=== PATIENT | female | born 1970 | race Caucasian/White ===

== ENCOUNTER 2018-10-22 03:04 | Inpatient (IN) ==
[2018-10-22] MEDS ORDERED: Ketorolac 30 MG/ML VIAL IVP ONE (05:25)
[2018-10-22] MEDS ORDERED: *HR* HYDROmorphone (PF) 1 MG/ML SYRINGE IVP ONE (05:25)
[2018-10-22] MEDS ORDERED: OXYCODONE Oral CONC 10 MG/0.5 ML ORAL.SYG SL PRN ×2 (05:27→11:41)
[2018-10-22] MEDS ORDERED: Naloxone 0.4 MG/ML INJ IVP PRN (05:27)
--- NOTE | 2018-10-22 06:00 | Internal Med History&Physical ---
Date of Encounter: 10/22/18 Time of Encounter: 05:56 Internal Medicine - H&P: HPI Chief complaint: neck pain Admitted From: Home Plans for Post Hospital Care: Home History of present illness: Jannie Abad is a 48 year old woman with a remote history of illicit drug use in the 80s and has rheumatoid arthritis/fibromyalgia for which she is no longer on DMARD therapy. She states that she started developing knee pains again and as she had been lost to medical follow-up did not have prescriptions for opiates so 4 days ago a friend of hers recommended that she do IV heroin again. Due to difficulty in obtaining venous access in her forearms, the injection was placed in her right neck and she immediately felt as though he had missed the vein. Of note the needle fell to the floor prior to insertion and he dabbed it off with his bare fingers. The next day she noticed redness and pain on the right side of her neck and progressively started having swelling. She did not seek medical attention immediately because she was embarrassed. It continued to progress to what it is today and was limiting and she started having suppuration. She has been applying warm compresses till now. At [facility] a [facility] scan was done which showed cellulitic changes and an abscess overlying the sternocleidomastoid supple; ENT was consulted and the patient was accepted here for admission. On arrival her chief complaint is pain but has no other issues. No fever or chills reported. Past Med Surg Social Fam HX - Past Medical History Medical history: other Additional medical history: fibromyalgia. RA. bulging disc l2-s16 Psychiatric history: anxiety - Past Surgical History Surgical History: - Social History Smoking Status: Never smoker Smokeless Tobacco Status: No Alcohol use: none Drug use: IV Drug Use Internal Medicine - H&P: Meds Allergy/AdvReac Type Severity Reaction Status Date / Time No Known Allergies Allergy Verified 10/22/18 04:58 All Systems PM: A 10-system review of systems was performed and is negative for pertinent findings except as documented above in the HPI. Family history reviewed and non- contributory. - Constitutional Vitals: Temp Pulse Resp BP Pulse Ox 98.8 F 89 16 110/73 97 10/22/18 04:59 10/22/18 04:59 10/22/18 04:59 10/22/18 04:59 10/22/18 04:59 Exam: Vitals: Reviewed General: Well developed white female, NAD Skin: Warm and supple. HEENT: Moist mucous membranes. No conjunctivae pallor. Neck: Large abscess overlying her right neck with a visible punctum with dried pus, erythema extending down to the clavicle and up to the upper trapezius. Chest: Normal thoracic expansion. Normal breath sounds. Clear to auscultation. Heart: Normal S1 & S2; rhythmic. No rubs or murmurs. Abdomen: Non-distended, soft and non-tender to palpation. No peritoneal reaction. Liver is normal in size. Spleen is not palpable. Extremities: No clubbing, cyanosis or edema. No calf tenderness. Normal distal pulses. Neurological: Awake, alert and oriented to person, place and time. No focal deficits. Psych: Affect appropriate. - Assessment and plan (1) Neck abscess Current Visit: Yes Status: Acute Assessment and plan: Secondary to intravenous use of illicit substance that was not well done. Will obtain blood cultures here and continue IV vancomycin empirically. ENT consultation requested to evaluate for possible I&D when deemed feasible. Will need close monitoring for progression. (2) Rheumatoid arthritis Current Visit: Yes Status: Acute Assessment and plan: Inflammatory signs not present at this time. Pain control measures ordered as needed. Qualifiers: Rheumatoid arthritis location: knee Rheumatoid factor presence: unspecified presence Laterality: bilateral Qualified Code(s): M06.9 - Rheumatoid arthritis, unspecified (3) Substance use disorder Current Visit: Yes Status: Acute Assessment and plan: She will benefit from counseling services prior to discharge. Should be screened for HIV and viral hepatitis. (4) DVT prophylaxis Current Visit: Yes Status: Acute Assessment and plan: SubQ heparin ordered. - Time Spent With Patient Total time spent is greater than 50% in coordination of care (as documented) at patient's floor/unit and/or counseling patient: Greater than 35 minutes
[2018-10-22 06:09] LABS: Basophils % 0.3 %; Eosinophils # 0.2 K/mcL (0.0-0.6); Eosinophils % 1.4 %; Hematocrit 36.5 % (35.3-44.9); Hemoglobin 11.9 g/dL (11.5-15.4); Immature Granulocytes % 0.3 % (0-4); Lymphocytes # 2.7 K/mcL (0.6-4.6); Lymphocytes % 19.6 %; Mean Corpuscular HGB Conc 32.6 g/dL (31.6-35.5); Mean Corpuscular Volume 85.9 fL (83.0-100.0); Mean Platelet Volume 9.9 fL (9.4-12.4); Monocytes # 1.3 K/mcL (0.0-1.3); Monocytes % 9.2 %; Neutrophils # 9.7 K/mcL (1.6-8.9); Platelet Count 251 K/mcL (140-400); Red Blood Count 4.25 M/mcL (3.82-4.97); Red Cell Distribution Width 13.5 % (11.5-14.5); Segmented Neutrophils % 69.2 %
[2018-10-22 06:16] LABS: INR 1.2; Prothrombin Time 13.3 Seconds (9.4-12.1)
[2018-10-22 06:18] LABS: Activated Partial Thrombo Time 28.5 Seconds (26.0-36.0)
[2018-10-22 06:30] LABS: Alanine Aminotransferase 34 Units/L (7-52); Albumin 3.3 g/dL (3.5-5.7); Alkaline Phosphatase 44 Units/L (34-104); Aspartate Amino Transferase 16 Units/L (13-39); BUN/Creatinine Ratio 9 (6-26); Bilirubin,Direct 0.1 mg/dL (0.0-0.2); Bilirubin,Indirect 0.3 mg/dL (0.0-1.2); Bilirubin,Total 0.4 mg/dL (0.3-1.0); Blood Urea Nitrogen 5 mg/dL (6-20); Calcium 8.2 mg/dL (8.6-10.3); Carbon Dioxide 23 mEq/L (23-29); Chloride 107 mEq/L (98-107); Globulin 3.4 g/dL (2.4-3.5); Glucose 111 mg/dL (70-105); Osmolality,Calculated 280 (280-300); Potassium 3.9 mEq/L (3.5-5.1); Sodium 136 mEq/L (136-145); Total Protein 6.7 g/dL (6.4-8.9); eGFR For Non-African Americans > 60 (> 60)
--- NOTE | 2018-10-22 07:38 | ENT - Consult Note ---
Date of Encounter: 10/22/18 Time of Encounter: 07:38 Past Med Surg Social Fam HX - Past Medical History Medical history: other Additional medical history: fibromyalgia. RA. bulging disc l2-s16 Psychiatric history: anxiety - Past Surgical History Surgical History: - Social History Smoking Status: Never smoker Smokeless Tobacco Status: No Alcohol use: none Drug use: IV Drug Use Medications and Allergies Allergy/AdvReac Type Severity Reaction Status Date / Time No Known Allergies Allergy Verified 10/22/18 04:58 ENT Exam Initial Vital Signs Temp Pulse Resp BP Pulse Ox 98.8 F 89 16 110/73 97 10/22/18 04:59 10/22/18 04:59 10/22/18 04:59 10/22/18 04:59 10/22/18 04:59 Exam Initial Vital Signs Temp Pulse Resp BP Pulse Ox 98.8 F 89 16 110/73 97 10/22/18 04:59 10/22/18 04:59 10/22/18 04:59 10/22/18 04:59 10/22/18 04:59 Results - Labs 10/22/18 05:45 10/22/18 05:45 Abnormal lab results WBC 14.0 K/mcL (4.3-11.1) H 10/22/18 05:45 Neutrophils # 9.7 K/mcL (1.6-8.9) H 10/22/18 05:45 PT 13.3 Seconds (9.4-12.1) H 10/22/18 05:45 BUN 5 mg/dL (6-20) L 10/22/18 05:45 Creatinine 0.55 mg/dL (0.60-1.20) L 10/22/18 05:45 Glucose 111 mg/dL (70-105) H 10/22/18 05:45 Calcium 8.2 mg/dL (8.6-10.3) L 10/22/18 05:45 Albumin 3.3 g/dL (3.5-5.7) L 10/22/18 05:45 Albumin/Globulin Ratio 1.0 (1.1-2.2) L 10/22/18 05:45 Diabetes panel 10/22/18 Range/Units 05:45 Sodium 136 (136-145) mEq/L Potassium 3.9 (3.5-5.1) mEq/L Chloride 107 (98-107) mEq/L Carbon Dioxide 23 (23-29) mEq/L BUN 5 L (6-20) mg/dL Creatinine 0.55 L (0.60-1.20) mg/dL Glucose 111 H (70-105) mg/dL Calcium 8.2 L (8.6-10.3) mg/dL AST 16 (13-39) Units/L ALT 34 (7-52) Units/L Alkaline Phosphatase 44 (34-104) Units/L Albumin 3.3 L (3.5-5.7) g/dL Calcium panel 10/22/18 Range/Units 05:45 Calcium 8.2 L (8.6-10.3) mg/dL Albumin 3.3 L (3.5-5.7) g/dL Pituitary panel 10/22/18 Range/Units 05:45 Sodium 136 (136-145) mEq/L Potassium 3.9 (3.5-5.1) mEq/L Chloride 107 (98-107) mEq/L Carbon Dioxide 23 (23-29) mEq/L BUN 5 L (6-20) mg/dL Creatinine 0.55 L (0.60-1.20) mg/dL Glucose 111 H (70-105) mg/dL Calcium 8.2 L (8.6-10.3) mg/dL Adrenal panel 10/22/18 Range/Units 05:45 Sodium 136 (136-145) mEq/L Potassium 3.9 (3.5-5.1) mEq/L Chloride 107 (98-107) mEq/L Carbon Dioxide 23 (23-29) mEq/L BUN 5 L (6-20) mg/dL Creatinine 0.55 L (0.60-1.20) mg/dL Glucose 111 H (70-105) mg/dL Calcium 8.2 L (8.6-10.3) mg/dL Total Bilirubin 0.4 (0.3-1.0) mg/dL AST 16 (13-39) Units/L ALT 34 (7-52) Units/L Alkaline Phosphatase 44 (34-104) Units/L Albumin 3.3 L (3.5-5.7) g/dL All other labs normal. Consult Discharge Plan - Plan Referrals: NONE,PCP [Primary Care Provider] -
[2018-10-22] MEDS: *HR* Heparin 5,000 UNIT/ML VIAL SQ SCH ×3 (07:45→23:02)
[2018-10-22] MEDS: OXYCODONE Oral CONC 10 MG/0.5 ML ORAL.SYG SL PRN ×4 (07:46→20:11)
--- NOTE | 2018-10-22 08:41 | Event Note ---
<Jose Alejandro Pimentel - Last Filed: 10/22/18 11:48> Date of Encounter: 10/22/18 Time of Encounter: 08:41 Mrs. Abad is a pleasant 48 YO F who was admitted for R neck abscess after I.V. heroin use. She has a PMHx of rheumatoid arthritis/ fibromyalgia and IV drug use in the 80s. Today she states that she feels fine, her neck hurts and she has a headache. She states shes embarrassed for using IV drugs and cant come around to telling her kids why shes in the hospital. She states that at first signs/symptoms of neck abscess she was too embarrassed to seek medical attention and treated it with warm compress. The next day she noticed suppuration and increased swelling and erythema and new she had to seek medical attention. She denies any dizziness, SOB, chest pain, abdominal pain, nausea, diarrhea, emesis, constipation, or dysuria. She denies extremity pain, swelling, or erythema. PE: - Gen: alert and oriented in no acute distress - HEET: Normocephalic atraumatic; EOMI intact; - Neck: R anterior neck swollen and erythematous from R jaw to R clavicular region, suppuration at two points over right IJV region midway between jaw and base of neck. - CV: RRR, no murmurs, gallops or rubs - Resp: CTA trevor, no wheezes, rhonchi or rales - GI: BS x4, soft and non-tender to palpation - Extremities: Dorsalis pedis and radial pulses intact trevor. - Skin: Warm to touch, dry, swelling and erythematous region over anterior R neck AP: 1. Neck Abscess - R neck abscess over IJV with swelling, erythema, suppuration - Due to IV heroin - Afebrile, w/ leukocytosis; No tachycardia, hypotension or tachypnea. - Plan: Consult ENT, place NPO; blood culture x 2 ordered, results pending; continue empiric IV vancomycin; Continue to monitor for progression; Oxycodone 10mg for severe pain; Oxycodone 5mg for moderate pain; Toradol for mild pain. 2. Anxiety - Patient embarrassed and anxious about R neck abscess - Plan: Hydroxyzine 25mg PRN for anxiety 3. Rheumatoid Arthritis - Patient comfortable, without pain, swelling or erythema of knees, wrists, or hands - Patient states she ran out of her meds and didnt want to go wait at her doctors office to get them refilled; her knee pain became unbearable so she used IV heroin - Plan: Hold methotrexate 4. Substance Use Disorder - Patient admits to IV drug use in the 80s - Patient admits to attempted use of IV heroin in IJV - Plan: Screen for HIV and viral hepatitis; seek counseling service at discharge; 5. DVT prophylaxis: - Subq heparin 5000 units <Nik Cedillo - Last Filed: 10/22/18 17:57> Date of Encounter: 10/22/18 I examined this patient and my medical decision-making was reviewed with the Medical Student and Resident Physician. I agree with the documented findings, disposition and treatment plan as described except to the extent set forth below. 48 year old female presents after worsening right neck infection. She used a dirty needle to inject heroin for pain relief. CT at [facility] showed neck abscess. Currently on Vancomycin, which we will continue. ENT evaluated patient, possibly I&D. Blood cultures obtained.
[2018-10-22] MEDS ORDERED: Ketorolac 30 MG/ML VIAL IVP PRN (12:00)
--- NOTE | 2018-10-22 13:08 | ENT - Consult Note ---
<Aleisha Gutierrez - Last Filed: 10/22/18 16:38> Date of Encounter: 10/22/18 Time of Encounter: 10:00 Assessment and Plan (1) Neck abscess Current Visit: Yes Status: Acute Seen and examined at bedside this a.m. Patient with large area of induration noted to right neck with small central area of fluctuance. Discussed findings with Dr. Alexander ENT surgeon who will plan for possible I&D at bedside today. Cultures obtained this A.M. by Dr. Alexander at bedside from small spontaneously draining area. Patient is currently on IV vancomycin. Continue IV antibiotics at this time with cultures pending. (2) Substance use disorder Current Visit: Yes Status: Acute (3) Myositis Current Visit: Yes Status: Acute Qualifiers: Myositis type: infective Qualified Code(s): M60.08 - Infective myositis, other site History of Present Illness Consult date: 10/21/17 Reason for ENT Consult: other (neck abscess) Requesting physician: Miriam Roberts History of present illness: Patient is a 48 year old female who was admitted on 10/21/17 for right neck abscess and sepsis criteria after I.V. heroin use approximately 5 days ago. She has a past medical history of rheumatoid arthritis, fibromyalgia, and IV drug use. Patient reports that approximately 5 days ago she injected heroine into the right side of her neck. The next day she noticed redness and pain on the right side of her neck and continued to have progressive swelling. She did not seek medical attention immediately. At [facility] a CT scan was completed which showed cellulitic changes and an abscess overlying the sternocleidomastoid muscle. ENT was consulted for evaluation for possible I&D of abscess. Past Med Surg Social Fam HX - Past Medical History Medical history: other Additional medical history: fibromyalgia. RA. bulging disc l2-s16 Psychiatric history: anxiety - Past Surgical History Surgical History: - Social History Smoking Status: Never smoker Smokeless Tobacco Status: No Alcohol use: none Drug use: IV Drug Use Medications and Allergies RX: No Known Home Drugs 10/22/18 [History] 3 Allergy/AdvReac Type Severity Reaction Status Date / Time No Known Allergies Allergy Verified 10/22/18 15:04 ENT - ROS - EENT Nose, mouth and throat: other (neck abscess and pain ) ENT Exam Initial Vital Signs Temp Pulse Resp BP Pulse Ox 98.8 F 89 16 110/73 97 10/22/18 04:59 10/22/18 04:59 10/22/18 04:59 10/22/18 04:59 10/22/18 04:59 - General physical appearance well developed, well nourished, moderate pain - Eyes PERRL, normal ocular movement - ENT CN 2-12 grossly intact, Other (Ears: EAC's clear bilaterally, TMs normal bilaterally. Oral: Teeth in good repair, mucosa moist, tongue midline, uvula midline, tonsils are atrophied, no oral lesions noted. NOSE: Septum grossly, midline mucosa moist, no rhinorrhea present. ) - Neck trachea midline, other (right sided neck abscess overlying right sternocleidomastoid muscle. Large area of induration (marked) with several small areas of fluctuance noted most prominent central portion. Small area of spontaneous purulent drainage noted to superior portion of induration. ) - Respiratory normal expansion, normal respiratory effort - Neurologic CN 2-12 grossly intact, normal coordination, normal sensation - Musculoskeletal normal gait, normal posture - Psychiatric oriented to time, oriented to person, oriented to place, speech is normal Exam Initial Vital Signs Temp Pulse Resp BP Pulse Ox 98.8 F 89 16 110/73 97 10/22/18 04:59 10/22/18 04:59 10/22/18 04:59 10/22/18 04:59 10/22/18 04:59 Results - Labs 10/22/18 05:45 10/22/18 05:45 Abnormal lab results WBC 14.0 K/mcL (4.3-11.1) H 10/22/18 05:45 Neutrophils # 9.7 K/mcL (1.6-8.9) H 10/22/18 05:45 PT 13.3 Seconds (9.4-12.1) H 10/22/18 05:45 BUN 5 mg/dL (6-20) L 10/22/18 05:45 Creatinine 0.55 mg/dL (0.60-1.20) L 10/22/18 05:45 Glucose 111 mg/dL (70-105) H 10/22/18 05:45 Calcium 8.2 mg/dL (8.6-10.3) L 10/22/18 05:45 Albumin 3.3 g/dL (3.5-5.7) L 10/22/18 05:45 Albumin/Globulin Ratio 1.0 (1.1-2.2) L 10/22/18 05:45 Diabetes panel 10/22/18 Range/Units 05:45 Sodium 136 (136-145) mEq/L Potassium 3.9 (3.5-5.1) mEq/L Chloride 107 (98-107) mEq/L Carbon Dioxide 23 (23-29) mEq/L BUN 5 L (6-20) mg/dL Creatinine 0.55 L (0.60-1.20) mg/dL Glucose 111 H (70-105) mg/dL Calcium 8.2 L (8.6-10.3) mg/dL AST 16 (13-39) Units/L ALT 34 (7-52) Units/L Alkaline Phosphatase 44 (34-104) Units/L Albumin 3.3 L (3.5-5.7) g/dL Calcium panel 10/22/18 Range/Units 05:45 Calcium 8.2 L (8.6-10.3) mg/dL Albumin 3.3 L (3.5-5.7) g/dL Pituitary panel 10/22/18 Range/Units 05:45 Sodium 136 (136-145) mEq/L Potassium 3.9 (3.5-5.1) mEq/L Chloride 107 (98-107) mEq/L Carbon Dioxide 23 (23-29) mEq/L BUN 5 L (6-20) mg/dL Creatinine 0.55 L (0.60-1.20) mg/dL Glucose 111 H (70-105) mg/dL Calcium 8.2 L (8.6-10.3) mg/dL Adrenal panel 10/22/18 Range/Units 05:45 Sodium 136 (136-145) mEq/L Potassium 3.9 (3.5-5.1) mEq/L Chloride 107 (98-107) mEq/L Carbon Dioxide 23 (23-29) mEq/L BUN 5 L (6-20) mg/dL Creatinine 0.55 L (0.60-1.20) mg/dL Glucose 111 H (70-105) mg/dL Calcium 8.2 L (8.6-10.3) mg/dL Total Bilirubin 0.4 (0.3-1.0) mg/dL AST 16 (13-39) Units/L ALT 34 (7-52) Units/L Alkaline Phosphatase 44 (34-104) Units/L Albumin 3.3 L (3.5-5.7) g/dL All other labs normal. Consult Discharge Plan - Plan Referrals: NONE,PCP [Primary Care Provider] - <Dequan Alexander R - Last Filed: 10/23/18 10:01> Date of Encounter: 10/23/18 Assessment and Plan (1) Neck abscess Current Visit: Yes Status: Acute (2) Substance use disorder Current Visit: Yes Status: Acute (3) Myositis Current Visit: Yes Status: Acute Qualifiers: Myositis type: infective Qualified Code(s): M60.08 - Infective myositis, other site ENT Exam Initial Vital Signs Temp Pulse Resp BP Pulse Ox 98.8 F 89 16 110/73 97 10/22/18 04:59 10/22/18 04:59 10/22/18 04:59 10/22/18 04:59 10/22/18 04:59 Exam Initial Vital Signs Temp Pulse Resp BP Pulse Ox 98.8 F 89 16 110/73 97 10/22/18 04:59 10/22/18 04:59 10/22/18 04:59 10/22/18 04:59 10/22/18 04:59 Results - Labs 10/23/18 02:58 10/23/18 02:58 Abnormal lab results WBC 12.3 K/mcL (4.3-11.1) H 10/23/18 02:58 Hgb 11.2 g/dL (11.5-15.4) L 10/23/18 02:58 Hct 34.6 % (35.3-44.9) L 10/23/18 02:58 MCH 27.5 pg (28.0-33.3) L 10/23/18 02:58 Neutrophils # 9.2 K/mcL (1.6-8.9) H 10/23/18 02:58 PT 13.3 Seconds (9.4-12.1) H 10/22/18 05:45 Sodium 134 mEq/L (136-145) L 10/23/18 02:58 BUN 5 mg/dL (6-20) L 10/23/18 02:58 Glucose 150 mg/dL (70-105) H 10/23/18 02:58 Calculated Osmolality 278 (280-300) L 10/23/18 02:58 Calcium 8.4 mg/dL (8.6-10.3) L 10/23/18 02:58 Albumin 3.3 g/dL (3.5-5.7) L 10/22/18 05:45 Albumin/Globulin Ratio 1.0 (1.1-2.2) L 10/22/18 05:45 Hepatitis A IgM Ab Equivocal (Nonreactive) H 10/22/18 05:43 Hepatitis C Ab Screen Reactive (Nonreactive) H 10/22/18 05:43 Diabetes panel 10/23/18 Range/Units 02:58 Sodium 134 L (136-145) mEq/L Potassium 3.7 (3.5-5.1) mEq/L Chloride 102 (98-107) mEq/L Carbon Dioxide 26 (23-29) mEq/L BUN 5 L (6-20) mg/dL Creatinine 0.62 (0.60-1.20) mg/dL Glucose 150 H (70-105) mg/dL Calcium 8.4 L (8.6-10.3) mg/dL Calcium panel 10/23/18 Range/Units 02:58 Calcium 8.4 L (8.6-10.3) mg/dL Pituitary panel 10/23/18 Range/Units 02:58 Sodium 134 L (136-145) mEq/L Potassium 3.7 (3.5-5.1) mEq/L Chloride 102 (98-107) mEq/L Carbon Dioxide 26 (23-29) mEq/L BUN 5 L (6-20) mg/dL Creatinine 0.62 (0.60-1.20) mg/dL Glucose 150 H (70-105) mg/dL Calcium 8.4 L (8.6-10.3) mg/dL Adrenal panel 10/23/18 Range/Units 02:58 Sodium 134 L (136-145) mEq/L Potassium 3.7 (3.5-5.1) mEq/L Chloride 102 (98-107) mEq/L Carbon Dioxide 26 (23-29) mEq/L BUN 5 L (6-20) mg/dL Creatinine 0.62 (0.60-1.20) mg/dL Glucose 150 H (70-105) mg/dL Calcium 8.4 L (8.6-10.3) mg/dL All other labs normal. - Attending Attestation The patient was seen by myself independent of the nurse practitioner. This is a 48-year-old female who presented from an outside emergency department with a chief complaint of right neck abscess and cellulitis. The patient states that she started using an injectable heroin 5 days prior to the development of severe pain, redness, and swelling in the right neck. The patient states that there has been a small amount of purulent drainage from the area. She has tried to place a needle and the area and express purulent material however she was unable to do this. A CT scan was ordered at the outside hospital and was reviewed and demonstrated a small superficial abscess that was not completely well-circumscribed as well as another larger loculation in the soft tissue. There was significant myositis of the right sternal clot mastoid. On physical exam there is a significant amount of induration and erythema noted on the right neck extending up to the inferior aspect of the mandible and down to the clavicle. There is a small area of fluctuance that is noted. There is a small area that is draining purulent. The patient is currently on IV antibiotics. Wound culture was obtained at the initial visit, the CT scan was reviewed, and at the time of presentation I did feel that the best option for the patient was to delay an incision and drainage until the following morning to allow the IV antibiotics to aid in treatment as well as allow the multiple loculations that were noted on the CT scan to declare as a larger abscess. Recommended continuation of IV antibiotics.
[2018-10-22 13:15] LABS: Hepatitis B Surface Antigen Nonreactive (Nonreactive)
[2018-10-22 13:46] LABS: Hepatitis B Core IgM Nonreactive (Nonreactive)
[2018-10-22] MEDS: Ketorolac 30 MG/ML VIAL IVP PRN (15:26)
[2018-10-22 15:58] LABS: Hepatitis C Virus Antibody Reactive (Nonreactive)
[2018-10-22 15:59] LABS: Hepatitis A Antibody IgM Equivocal (Nonreactive)
[2018-10-22] MEDS ORDERED: Isovue-370 500 ML BOTTLE IVP ONE (19:28)
--- NOTE | 2018-10-22 20:18 | Event Note ---
Date of Encounter: 10/22/18 Time of Encounter: 18:[address] Scan and examining the patient this evening. I will have the patient continue IV ABX and allow the abscess to further declare itsself. Will plan for bedside I/D tomorrow AM.
[2018-10-22] MEDS: hydrOXYzine pamoate 25 MG CAPSULE PO PRN (23:02)
[2018-10-23] MEDS: OXYCODONE Oral CONC 10 MG/0.5 ML ORAL.SYG SL PRN ×5 (00:25→20:43)
[2018-10-23] MEDS: Ketorolac 30 MG/ML VIAL IVP PRN ×2 (03:02→14:13)
[2018-10-23 03:22] LABS: Basophils # 0.1 K/mcL (0.0-0.2); Basophils % 0.4 %; Eosinophils # 0.2 K/mcL (0.0-0.6); Eosinophils % 1.6 %; Hematocrit 34.6 % (35.3-44.9); Hemoglobin 11.2 g/dL (11.5-15.4); Immature Granulocytes % 0.4 % (0-4); Immature Platelets 2.3 % (1.1-6.1); Mean Corpuscular HGB Conc 32.4 g/dL (31.6-35.5); Mean Corpuscular Hemoglobin 27.5 pg (28.0-33.3); Monocytes # 0.9 K/mcL (0.0-1.3); Monocytes % 7.4 %; Neutrophils # 9.2 K/mcL (1.6-8.9); Platelet Count 294 K/mcL (140-400); Red Blood Count 4.07 M/mcL (3.82-4.97); Red Cell Distribution Width 13.4 % (11.5-14.5); Segmented Neutrophils % 74.2 %
[2018-10-23 03:46] LABS: BUN/Creatinine Ratio 8 (6-26); Blood Urea Nitrogen 5 mg/dL (6-20); Calcium 8.4 mg/dL (8.6-10.3); Carbon Dioxide 26 mEq/L (23-29); Chloride 102 mEq/L (98-107); Glucose 150 mg/dL (70-105); Osmolality,Calculated 278 (280-300); Potassium 3.7 mEq/L (3.5-5.1); Sodium 134 mEq/L (136-145); eGFR For Non-African Americans > 60 (> 60)
[2018-10-23] MEDS ORDERED: OXYCODONE Oral CONC 10 MG/0.5 ML ORAL.SYG SL ONE (07:41)
[2018-10-23] MEDS: *HR* Heparin 5,000 UNIT/ML VIAL SQ SCH ×3 (08:54→23:18)
--- NOTE | 2018-10-23 09:01 | Internal Med Progress Note ---
<Nicol Cedillo Damasosuraj - Last Filed: 10/23/18 15:12> Hospitalist Progress Note - Encounter Date of Encounter: 10/23/18 - Exam Vitals: Temp Pulse Resp BP Pulse Ox 97.7 F 86 16 113/70 98 10/23/18 11:57 10/23/18 11:57 10/23/18 11:57 10/23/18 11:57 10/23/18 11:57 - Assessment and Plan (1) Neck abscess Current Visit: Yes Status: Acute (2) Rheumatoid arthritis Current Visit: Yes Status: Acute (3) Substance use disorder Current Visit: Yes Status: Acute (4) DVT prophylaxis Current Visit: Yes Status: Acute - Time Spent with Patient Total time spent is greater than 50% in coordination of care (as documented) at patient's floor/unit and/or counseling patient: Internal Medicine: Result - Labs CBC & Chem 7: 10/23/18 02:58 10/23/18 02:58 Labs: Short CBC 10/23/18 Range/Units 02:58 WBC 12.3 H (4.3-11.1) K/mcL Hgb 11.2 L (11.5-15.4) g/dL Hct 34.6 L (35.3-44.9) % Plt Count 294 (140-400) K/mcL Neutrophils # 9.2 H (1.6-8.9) K/mcL BMP 10/23/18 02:58 Sodium 134 L Potassium 3.7 Chloride 102 Carbon Dioxide 26 BUN 5 L Creatinine 0.62 Glucose 150 H Calcium 8.4 L - ABG Interpretation ABG results: PT/INR, D-dimer PT 13.3 Seconds (9.4-12.1) H 10/22/18 05:45 - Impressions Impressions Soft Tissue Neck CT 10/22/18 18:44 IMPRESSION: Right lateral neck skin thickening and subcutaneous edema is consistent with cellulitis. Associated rim enhancing fluid collection, extending into the underlying sternocleidomastoid muscle, is consistent with an abscess. Abscess has increased in size since CT neck performed at outside institution earlier the same day. Right sternocleidomastoid muscle is edematous and enlarged, consistent with associated myositis. D/ / 10/22/2018 19:59:31 Kishore Bill MD / raisa Interpreting Provider: Kishore Bill MD Consult Discharge Plan - Plan Referrals: NONE,PCP [Primary Care Provider] - - Attending Attestation I examined this patient and my medical decision-making was reviewed with the Resident Physician. I agree with the documented findings, disposition and treatment plan as described except to the extent set forth below. Patient had I&D done today by ENT. Tolerated procedure well. Patient has active drainage noted, erythema of neck present as was yesterday. VS reviewed, Labs: reviewed. For neck abscess: continue IV Vancomycin. Patient will need a IV antibiotics and will need to await final cultures. Anticipate ID consult on Friday, hopefully cultures will be back before then. Unclear right now if patient will need IV or PO antibiotics on discharge. <Denny Garcia - Last Filed: 10/23/18 18:06> Hospitalist Progress Note - Encounter Date of Encounter: 10/23/18 Time of Encounter: 17:52 - Subjective Interval History: Ms. Abad is a 48F with PMH of rheumatoid arthritis, fibromyalgia, and IV drug abuse. She was admitted for a right neck abscess after attempted IV heroin use. Dr. Alexander performed bedside I&D of abscess earlier this morning. Pt seen and examined at bedside. In mild distress following I&D of abscess. States "this is gross". States her pain is not controlled at this time. Denies any fever, chills, chest pain, shortness of breath, abdominal pain, nausea, vomiting, headaches, numbness, or tingling. - Exam Vitals: Temp Pulse Resp BP Pulse Ox 98.7 F 93 18 112/74 97 10/23/18 07:53 10/23/18 07:53 10/23/18 07:53 10/23/18 07:53 10/23/18 07:53 Exam: General: well developed, well nourished female in mild distress Head: normocephalic and atraumatic Eyes: PERRL, EOMI, no sclera icterus, conjunctiva pink Neck: supple, trachea midline, dressing in place over neck abscess which was recently I&D'ed with serosanguinous drainage visible. Continued erythema grossly unchanged Lungs: CTA bilaterally. non-labored breathing. No wheezes, rales, or rhonchi Heart: RRR +s1 +s2 No murmurs, clicks, or rubs GI: abdomen soft, non-tender, non-distended. no hepatosplenomegaly. no masses Extremities: warm, peripheral pulses palpable and symmetrical. no edema or cyanosis Neuro: A&Ox3. no focal deficits. no speech difficulty or abnormality Skin: warm, dry, intact. Erythema of neck grossly unchanged. - Assessment and Plan (1) Neck abscess Current Visit: Yes Status: Acute Assessment and Plan: Right neck abscess 2/2 IV drug use Afebrile Leukocytosis improved at 12.2 today ENT on board and performed bedside I&D this morning Wound cultures pending Continue IV Vanc (2) Myositis Current Visit: Yes Status: Acute Assessment and Plan: Of SCM as seen on CT Plan as above for neck abscess (3) Rheumatoid arthritis Current Visit: Yes Status: Acute Assessment and Plan: Inflammatory signs not present at this time. Pain control measures ordered as needed (4) Substance use disorder Current Visit: Yes Status: Acute Assessment and Plan: She will benefit from counseling services prior to discharge. HIV screen ordered - awaiting results Hepatitis A IgM antibody equivocal results - may reflect previous vaccination Positive Hep C antibody DVT Prophylaxis: SQ Heparin - Time Spent with Patient Total time spent is greater than 50% in coordination of care (as documented) at patient's floor/unit and/or counseling patient: Internal Medicine: Result - Labs CBC & Chem 7: 10/23/18 02:58 10/23/18 02:58 Labs: Short CBC 10/23/18 Range/Units 02:58 WBC 12.3 H (4.3-11.1) K/mcL Hgb 11.2 L (11.5-15.4) g/dL Hct 34.6 L (35.3-44.9) % Plt Count 294 (140-400) K/mcL Neutrophils # 9.2 H (1.6-8.9) K/mcL BMP 10/23/18 02:58 Sodium 134 L Potassium 3.7 Chloride 102 Carbon Dioxide 26 BUN 5 L Creatinine 0.62 Glucose 150 H Calcium 8.4 L - ABG Interpretation ABG results: PT/INR, D-dimer PT 13.3 Seconds (9.4-12.1) H 10/22/18 05:45 - Impressions Impressions Soft Tissue Neck CT 10/22/18 18:44 IMPRESSION: Right lateral neck skin thickening and subcutaneous edema is consistent with cellulitis. Associated rim enhancing fluid collection, extending into the underlying sternocleidomastoid muscle, is consistent with an abscess. Abscess has increased in size since CT neck performed at outside institution earlier the same day. Right sternocleidomastoid muscle is edematous and enlarged, consistent with associated myositis. D/ / 10/22/2018 19:59:31 Kishore Bill MD / raisa Interpreting Provider: Kishore Bill MD <Nik Cedillo - Last Filed: 10/23/18 15:12> (2) Rheumatoid arthritis Qualifiers: Rheumatoid arthritis location: knee Rheumatoid factor presence: unspecified presence Laterality: bilateral Qualified Code(s): M06.9 - Rheumatoid arthr itis, unspecified <Denny Garcia - Last Filed: 10/23/18 18:06> (2) Myositis Qualifiers: Myositis type: infective Myositis location: other site Qualified Code(s): M60.08 - Infective myositis, other site (3) Rheumatoid arthritis Qualifiers: Rheumatoid arthritis location: knee Rheumatoid factor presence: unspecified presence Laterality: bilateral Qualified Code(s): M06.9 - Rheumatoid arthrit is, unspecified
--- NOTE | 2018-10-23 10:12 | ENT - Progress Note ---
Date of Encounter: 10/23/18 Time of Encounter: 07:00 - Assessment and Plan (1) Neck abscess Current Visit: Yes Status: Acute Continue current antibiotic regimen An incision and drainage was performed at bedside and packing was placed. Patient tolerated well. Please see the procedure note below. Will advance packing daily. Versatel over wound. Wound cultures pending and will review when available. The on-call ENT will be following the patient over the weekend. I discussed this patient case with him. Preoperative diagnosis: Neck abscess Postoperative diagnosis same Procedure performed: Incision and drainage of right neck abscess. Surgeon: Dequan Alexander D.O. Complications: None Specimens: None Description of procedure: After the risks benefits and alternatives to the proposed procedure were discussed with the patient, written consent was obtained. Next the skin overlying the abscess was cleansed with alcohol. Following this approximately 5 mL of 1% lidocaine with 1 100,000 epinephrine was injected into the skin overlying the most fluctuant area of the abscess. After waiting an appropriate amount time for vasoconstriction and anesthesia to take place a 3 cm incision was made in a vertical fashion through the skin and into the subcutaneous tissue where the abscess pocket was present. There is a significant amount of egress of purulent material, approximately 5 mL. The wound was then copiously irrigated and 1/4 inch iodoform packing strips were then placed into the abscess cavity. The area was then dressed with Versatel. Patient tolerated the procedure well. (2) Substance use disorder Current Visit: Yes Status: Acute (3) Myositis Current Visit: Yes Status: Acute Qualifiers: Myositis type: infective Qualified Code(s): M60.08 - Infective myositis, other site Subjective Narrative: The amount of erythema had decreased since yesterday and does feel that the area is still painful. She states that there has been a slight amount of oozing of purulent material from the neck. She denies fever overnight. Objective Initial Vital Signs Temp Pulse Resp BP Pulse Ox 98.8 F 89 16 110/73 97 10/22/18 04:59 10/22/18 04:59 10/22/18 04:59 10/22/18 04:59 10/22/18 04:59 - Neck other (The area of erythema of the right neck has significantly decreased since yesterday's exam, however centrally, there is a larger area of fluctuance that is present.) - Labs 10/23/18 02:58 10/23/18 02:58 Diabetes panel 10/23/18 Range/Units 02:58 Sodium 134 L (136-145) mEq/L Potassium 3.7 (3.5-5.1) mEq/L Chloride 102 (98-107) mEq/L Carbon Dioxide 26 (23-29) mEq/L BUN 5 L (6-20) mg/dL Creatinine 0.62 (0.60-1.20) mg/dL Glucose 150 H (70-105) mg/dL Calcium 8.4 L (8.6-10.3) mg/dL Calcium panel 10/23/18 Range/Units 02:58 Calcium 8.4 L (8.6-10.3) mg/dL Pituitary panel 10/23/18 Range/Units 02:58 Sodium 134 L (136-145) mEq/L Potassium 3.7 (3.5-5.1) mEq/L Chloride 102 (98-107) mEq/L Carbon Dioxide 26 (23-29) mEq/L BUN 5 L (6-20) mg/dL Creatinine 0.62 (0.60-1.20) mg/dL Glucose 150 H (70-105) mg/dL Calcium 8.4 L (8.6-10.3) mg/dL Adrenal panel 10/23/18 Range/Units 02:58 Sodium 134 L (136-145) mEq/L Potassium 3.7 (3.5-5.1) mEq/L Chloride 102 (98-107) mEq/L Carbon Dioxide 26 (23-29) mEq/L BUN 5 L (6-20) mg/dL Creatinine 0.62 (0.60-1.20) mg/dL Glucose 150 H (70-105) mg/dL Calcium 8.4 L (8.6-10.3) mg/dL Consult Discharge Plan - Plan Referrals: NONE,PCP [Primary Care Provider] -
[2018-10-24] MEDS: OXYCODONE Oral CONC 10 MG/0.5 ML ORAL.SYG SL PRN ×6 (01:10→21:00)
[2018-10-24] MEDS: Ketorolac 30 MG/ML VIAL IVP PRN ×3 (02:37→18:52)
[2018-10-24 02:56] LABS: Basophils % 0.4 %; Eosinophils # 0.2 K/mcL (0.0-0.6); Immature Granulocytes % 0.1 % (0-4); Lymphocytes % 25.3 %; Mean Corpuscular HGB Conc 32.4 g/dL (31.6-35.5); Mean Corpuscular Volume 86.5 fL (83.0-100.0); Mean Platelet Volume 9.7 fL (9.4-12.4); Monocytes # 0.7 K/mcL (0.0-1.3); Monocytes % 8.6 %; Platelet Count 247 K/mcL (140-400); Red Blood Count 3.93 M/mcL (3.82-4.97); Red Cell Distribution Width 13.2 % (11.5-14.5); Segmented Neutrophils % 62.6 %
[2018-10-24 03:11] LABS: BUN/Creatinine Ratio 14 (6-26); Blood Urea Nitrogen 9 mg/dL (6-20); Calcium 8.2 mg/dL (8.6-10.3); Carbon Dioxide 27 mEq/L (23-29); Chloride 105 mEq/L (98-107); Glucose 138 mg/dL (70-105); Osmolality,Calculated 283 (280-300); Potassium 3.9 mEq/L (3.5-5.1); Sodium 136 mEq/L (136-145); eGFR For Non-African Americans > 60 (> 60)
[2018-10-24] MEDS: *HR* Heparin 5,000 UNIT/ML VIAL SQ SCH ×2 (08:19→16:59)
--- NOTE | 2018-10-24 10:32 | Internal Med Progress Note ---
<Denny Garcia - Last Filed: 10/24/18 13:30> Hospitalist Progress Note - Encounter Date of Encounter: 10/24/18 Time of Encounter: 10:29 - Subjective Interval History: Ms. Abad is a 48F with PMH of rheumatoid arthritis, fibromyalgia, and IV drug abuse. She was admitted for a right neck abscess after attempted IV heroin use. Dr. Alexander performed bedside I&D of abscess on 10/23. Pt seen and examined at bedside. In mild distress following ENT evaluation of abscess minutes prior to this evaluation. States her pain was adequately controlled prior to ENT evaluation this morning. Continues to deny any fever, chills, chest pain, shortness of breath, abdominal pain, nausea, vomiting, headaches, numbness, or tingling. - Exam Vitals: Temp Pulse Resp BP Pulse Ox 98.5 F 83 14 104/68 96 10/24/18 07:58 10/24/18 07:58 10/24/18 07:58 10/24/18 07:58 10/24/18 07:58 Exam: General: well developed, well nourished female in mild distress Head: normocephalic and atraumatic Eyes: PERRL, EOMI, no sclera icterus, conjunctiva pink Neck: supple, trachea midline, dressing in place over neck abscess with serosanguinous drainage visible. Continued erythema grossly somewhat improved Lungs: CTA bilaterally. non-labored breathing. No wheezes, rales, or rhonchi Heart: RRR +s1 +s2 No murmurs, clicks, or rubs GI: abdomen soft, non-tender, non-distended. no hepatosplenomegaly. no masses Extremities: warm, peripheral pulses palpable and symmetrical. no edema or cyanosis Neuro: A&Ox3. no focal deficits. no speech difficulty or abnormality Skin: warm, dry, intact. Erythema of neck somewhat improved from yesterday. - Assessment and Plan (1) Neck abscess Current Visit: Yes Status: Acute Assessment and Plan: Right neck abscess 2/2 IV drug use Afebrile Leukocytosis improved at 7.9 today ENT on board and performed bedside I&D yesterday - stated no need to pack wound today Wound cultures pending Continue IV Vanc (Day 3) (2) Rheumatoid arthritis Current Visit: Yes Status: Acute Assessment and Plan: Inflammatory signs not present at this time. Pain control measures ordered as needed (3) Substance use disorder Current Visit: Yes Status: Acute Assessment and Plan: She will benefit from counseling services prior to discharge. HIV screen ordered - awaiting results Hepatitis A IgM antibody equivocal results - may reflect previous vaccination Positive Hep C antibody (4) Myositis Current Visit: Yes Status: Acute Assessment and Plan: Of SCM as seen on CT Plan as above for neck abscess DVT Prophylaxis: SQ Heparin - Time Spent with Patient Total time spent is greater than 50% in coordination of care (as documented) at patient's floor/unit and/or counseling patient: Internal Medicine: Result - Labs CBC & Chem 7: 10/24/18 02:43 10/24/18 02:43 Labs: Short CBC 10/24/18 Range/Units 02:43 WBC 7.9 (4.3-11.1) K/mcL Hgb 11.0 L (11.5-15.4) g/dL Hct 34.0 L (35.3-44.9) % Plt Count 247 (140-400) K/mcL Neutrophils # 5.0 (1.6-8.9) K/mcL BMP 10/24/18 02:43 Sodium 136 Potassium 3.9 Chloride 105 Carbon Dioxide 27 BUN 9 Creatinine 0.64 Glucose 138 H Calcium 8.2 L - ABG Interpretation ABG results: PT/INR, D-dimer PT 13.3 Seconds (9.4-12.1) H 10/22/18 05:45 - Impressions Impressions Soft Tissue Neck CT 10/22/18 18:44 IMPRESSION: Right lateral neck skin thickening and subcutaneous edema is consistent with cellulitis. Associated rim enhancing fluid collection, extending into the underlying sternocleidomastoid muscle, is consistent with an abscess. Abscess has increased in size since CT neck performed at outside institution earlier the same day. Right sternocleidomastoid muscle is edematous and enlarged, consistent with associated myositis. D/ / 10/22/2018 19:59:31 Kishore Bill MD / raisa Interpreting Provider: Kishore Bill MD Consult Discharge Plan - Plan Referrals: NONE,PCP [Primary Care Provider] - <Nik Cedillo - Last Filed: 10/24/18 17:08> Hospitalist Progress Note - Encounter Date of Encounter: 10/24/18 - Exam Vitals: Temp Pulse Resp BP Pulse Ox 97.7 F 75 15 115/81 97 10/24/18 14:15 10/24/18 14:15 10/24/18 14:15 10/24/18 14:15 10/24/18 14:15 - Assessment and Plan (1) Neck abscess Current Visit: Yes Status: Acute (2) Rheumatoid arthritis Current Visit: Yes Status: Acute (3) Substance use disorder Current Visit: Yes Status: Acute (4) Myositis Current Visit: Yes Status: Acute - Time Spent with Patient Total time spent is greater than 50% in coordination of care (as documented) at patient's floor/unit and/or counseling patient: Internal Medicine: Result - Labs CBC & Chem 7: 10/24/18 02:43 10/24/18 02:43 Labs: Short CBC 10/24/18 Range/Units 02:43 WBC 7.9 (4.3-11.1) K/mcL Hgb 11.0 L (11.5-15.4) g/dL Hct 34.0 L (35.3-44.9) % Plt Count 247 (140-400) K/mcL Neutrophils # 5.0 (1.6-8.9) K/mcL BMP 10/24/18 02:43 Sodium 136 Potassium 3.9 Chloride 105 Carbon Dioxide 27 BUN 9 Creatinine 0.64 Glucose 138 H Calcium 8.2 L - ABG Interpretation ABG results: PT/INR, D-dimer PT 13.3 Seconds (9.4-12.1) H 10/22/18 05:45 - Attending Attestation I examined this patient and my medical decision-making was reviewed with the Resident Physician. I agree with the documented findings, disposition and treatment plan as described except to the extent set forth below. There is significant improvement in the erythema of her neck today. VS: reviewed: stable, labs reviewed. Continue current care with Vancomycin, will need 1-2 more days of therapy and await I&D cultures prior to DC. _ <Denny Garcia - Last Filed: 10/24/18 13:30> (2) Rheumatoid arthritis Qualifiers: Rheumatoid arthritis location: knee Rheumatoid factor presence: unspecified presence Laterality: bilateral Qualified Code(s): M06.9 - Rheumatoid arthritis, unspecified (4) Myositis Qualifiers: Myositis type: infective Myositis location: other site Qualified Code(s): M60.08 - Infective myositis, other site <Nik Cedillo - Last Filed: 10/24/18 17:08> (2) Rheumatoid arthritis Qualifiers: Rheumatoid arthritis location: knee Rheumatoid factor presence: unspecified presence Laterality: bilateral Qualified Code(s): M06.9 - Rheumatoid arthritis, unspecified (4) Myositis Qualifiers: Myositis type: infective Myositis location: other site Qualified Code(s): M60.08 - Infective myositis, other site
--- NOTE | 2018-10-24 10:33 | ENT - Progress Note ---
Date of Encounter: 10/24/18 Time of Encounter: 10:31 - Assessment and Plan (1) Neck abscess Current Visit: Yes Status: Acute Large gaping incision right neck no active purulent drainage tenderness and neck improving recommending continued use of heat no packing placed for follow-up and reassessment Maya continued antibiotics pending possible change on culture results Subjective Patient reports: no new complaints, other (Persistent tenderness of right neck with split persistent swelling discomfort patient's culture still pending patient on vancomycin patient afebrile no substantial drainage ) Objective Initial Vital Signs Temp Pulse Resp BP Pulse Ox 98.8 F 89 16 110/73 97 10/22/18 04:59 10/22/18 04:59 10/22/18 04:59 10/22/18 04:59 10/22/18 04:59 - General physical appearance well developed, well nourished, no distress, moderate pain - Eyes PERRL - ENT normal pinna, normal nares, normal mucosa, no hearing loss - Neck other (There is a large incision in the right neck approximately 1 inch in length with wide opening into subcutaneous pocket we probed the depths of this pocket with a sterile Q-tip no deep areas could be identified for additional packing and the wound was left open it was gaping there was no need for packing of the wound was cleaned inside and out with Betadine followed by placement of a dressing) - Respiratory normal expansion, normal respiratory effort - Abdomen soft, non tender - Integumentary no rash, no growths, other (Large incision right neck is identified under neck with surrounding erythema and tenderness) - Labs 10/24/18 02:43 10/24/18 02:43 Diabetes panel 10/24/18 Range/Units 02:43 Sodium 136 (136-145) mEq/L Potassium 3.9 (3.5-5.1) mEq/L Chloride 105 (98-107) mEq/L Carbon Dioxide 27 (23-29) mEq/L BUN 9 (6-20) mg/dL Creatinine 0.64 (0.60-1.20) mg/dL Glucose 138 H (70-105) mg/dL Calcium 8.2 L (8.6-10.3) mg/dL Calcium panel 10/24/18 Range/Units 02:43 Calcium 8.2 L (8.6-10.3) mg/dL Pituitary panel 10/24/18 Range/Units 02:43 Sodium 136 (136-145) mEq/L Potassium 3.9 (3.5-5.1) mEq/L Chloride 105 (98-107) mEq/L Carbon Dioxide 27 (23-29) mEq/L BUN 9 (6-20) mg/dL Creatinine 0.64 (0.60-1.20) mg/dL Glucose 138 H (70-105) mg/dL Calcium 8.2 L (8.6-10.3) mg/dL Adrenal panel 10/24/18 Range/Units 02:43 Sodium 136 (136-145) mEq/L Potassium 3.9 (3.5-5.1) mEq/L Chloride 105 (98-107) mEq/L Carbon Dioxide 27 (23-29) mEq/L BUN 9 (6-20) mg/dL Creatinine 0.64 (0.60-1.20) mg/dL Glucose 138 H (70-105) mg/dL Calcium 8.2 L (8.6-10.3) mg/dL Consult Discharge Plan - Plan Referrals: NONE,PCP [Primary Care Provider] -
[2018-10-24] MEDS: hydrOXYzine pamoate 25 MG CAPSULE PO PRN (12:41)
[2018-10-25] MEDS: *HR* Heparin 5,000 UNIT/ML VIAL SQ SCH ×3 (00:18→16:52)
[2018-10-25] MEDS: Ketorolac 30 MG/ML VIAL IVP PRN ×4 (00:19→19:26)
[2018-10-25] MEDS: OXYCODONE Oral CONC 10 MG/0.5 ML ORAL.SYG SL PRN ×4 (02:28→20:47)
[2018-10-25 07:22] LABS: Basophils % 0.5 %; Eosinophils # 0.2 K/mcL (0.0-0.6); Eosinophils % 4.2 %; Hematocrit 38.8 % (35.3-44.9); Hemoglobin 12.2 g/dL (11.5-15.4); Immature Granulocytes % 0.2 % (0-4); Lymphocytes # 1.7 K/mcL (0.6-4.6); Lymphocytes % 30.2 %; Mean Corpuscular HGB Conc 31.4 g/dL (31.6-35.5); Mean Corpuscular Hemoglobin 27.9 pg (28.0-33.3); Mean Corpuscular Volume 88.6 fL (83.0-100.0); Monocytes # 0.4 K/mcL (0.0-1.3); Monocytes % 7.5 %; Neutrophils # 3.1 K/mcL (1.6-8.9); Platelet Count 282 K/mcL (140-400); Red Blood Count 4.38 M/mcL (3.82-4.97); Red Cell Distribution Width 13.2 % (11.5-14.5); Segmented Neutrophils % 57.4 %
[2018-10-25 07:24] LABS: BUN/Creatinine Ratio 13 (6-26); Blood Urea Nitrogen 9 mg/dL (6-20); Calcium 8.5 mg/dL (8.6-10.3); Carbon Dioxide 26 mEq/L (23-29); Chloride 109 mEq/L (98-107); Glucose 105 mg/dL (70-105); Osmolality,Calculated 289 (280-300); Sodium 140 mEq/L (136-145); eGFR For Non-African Americans > 60 (> 60)
[2018-10-25 07:43] LABS: Vancomycin,Trough 12 mcg/mL (5-10)
--- NOTE | 2018-10-25 09:51 | ENT - Progress Note ---
Date of Encounter: 10/25/18 Time of Encounter: 09:49 - Assessment and Plan (1) Neck abscess Current Visit: Yes Status: Acute Large gaping incision right neck no active purulent drainage tenderness and neck slightly improving recommending continued use of heat no packing placed for follow-up and reassessment Maya continued antibiotics pending possible change on culture results essentially unchanged from yesterday except small reduction in swelling and small increase in ability to turn her neck a little more for continued IV management with antibiotics culture directed antibiotic therapy no packing was placed as the wound was open and gaping Subjective Patient reports: no new complaints (Patient feels like swelling is slightly decreased and able to move neck a little bit better still substantial discomfort on probing the wound and painting with Betadine), other (No temperature white count is dropped from 14,000 5000 cultures still pending patient still on vancomycin slow improvement) Objective Initial Vital Signs Temp Pulse Resp BP Pulse Ox 98.8 F 89 16 110/73 97 10/22/18 04:59 10/22/18 04:59 10/22/18 04:59 10/22/18 04:59 10/22/18 04:59 - General physical appearance well developed, well nourished, moderate distress - Eyes PERRL, normal ocular movement - ENT normal pinna, normal nares, normal mucosa, no hearing loss - Neck other (Persistent gaping incision in the right neck with no areas of induration on palpation using a Q-tip no substantial reduction in swelling clinically the sternocleidomastoid is wet machine tender firm and hard underlying the incision but do not feel there are any areas that need to be drained this is just a very hard cellulitis which will need to be followed with appropriate antibiotics still waiting for final culture results) - Respiratory normal expansion, normal respiratory effort - Integumentary no rash, no growths, no abnormal pigmentation - Neurologic CN 2-12 grossly intact, normal coordination - Musculoskeletal normal gait, normal posture - Labs 10/25/18 06:59 10/25/18 06:59 Diabetes panel 10/25/18 Range/Units 06:59 Sodium 140 (136-145) mEq/L Potassium 4.0 (3.5-5.1) mEq/L Chloride 109 H (98-107) mEq/L Carbon Dioxide 26 (23-29) mEq/L BUN 9 (6-20) mg/dL Creatinine 0.71 (0.60-1.20) mg/dL Glucose 105 (70-105) mg/dL Calcium 8.5 L (8.6-10.3) mg/dL Calcium panel 10/25/18 Range/Units 06:59 Calcium 8.5 L (8.6-10.3) mg/dL Pituitary panel 10/25/18 Range/Units 06:59 Sodium 140 (136-145) mEq/L Potassium 4.0 (3.5-5.1) mEq/L Chloride 109 H (98-107) mEq/L Carbon Dioxide 26 (23-29) mEq/L BUN 9 (6-20) mg/dL Creatinine 0.71 (0.60-1.20) mg/dL Glucose 105 (70-105) mg/dL Calcium 8.5 L (8.6-10.3) mg/dL Adrenal panel 10/25/18 Range/Units 06:59 Sodium 140 (136-145) mEq/L Potassium 4.0 (3.5-5.1) mEq/L Chloride 109 H (98-107) mEq/L Carbon Dioxide 26 (23-29) mEq/L BUN 9 (6-20) mg/dL Creatinine 0.71 (0.60-1.20) mg/dL Glucose 105 (70-105) mg/dL Calcium 8.5 L (8.6-10.3) mg/dL Consult Discharge Plan - Plan Referrals: NONE,PCP [Primary Care Provider] -
--- NOTE | 2018-10-25 17:58 | Event Note ---
Date of Encounter: 10/25/18 Time of Encounter: 17:55 I examined this patient and my medical decision-making was reviewed with the Resident Physician. I agree with the documented findings, disposition and treatment plan as described except to the extent set forth below. Please see resident note No acute events. Neck pain improving VS: reviewed, hemodynamically stable, afebrile. Physical exam: erythema of neck near resolved, right lateral neck abscess status post drainage Wound culture: prelim: gpc For neck abscess: improving with Vancomycin and I&D. - Continue Vancomycin - Culture sensitivities pending
--- NOTE | 2018-10-25 18:09 | Internal Med Progress Note ---
<Denny Garcia - Last Filed: 10/25/18 18:53> Hospitalist Progress Note - Encounter Date of Encounter: 10/25/18 Time of Encounter: 09:00 - Subjective Interval History: Ms. Abad is a 48F with PMH of rheumatoid arthritis, fibromyalgia, and IV drug abuse. She was admitted for a right neck abscess after attempted IV heroin use. Dr. Alexander performed bedside I&D of abscess on 10/23. Pt seen and examined at bedside. In mild distress following ENT evaluation of abscess minutes prior to this evaluation. States her pain was adequately controlled prior to ENT evaluation this morning. Continues to deny any fever, chills, chest pain, shortness of breath, abdominal pain, nausea, vomiting, headaches, numbness, or tingling. - Exam Vitals: Temp Pulse Resp BP Pulse Ox 97.9 F 74 15 128/76 97 10/25/18 10:05 10/25/18 10:05 10/25/18 10:05 10/25/18 10:05 10/25/18 10:05 Exam: General: well developed, well nourished female in mild distress Head: normocephalic and atraumatic Eyes: PERRL, EOMI, no sclera icterus, conjunctiva pink Neck: supple, trachea midline, dressing in place over neck abscess with serosanguinous drainage visible. Erythema surrounding wound improved Lungs: CTA bilaterally. non-labored breathing. No wheezes, rales, or rhonchi Heart: RRR +s1 +s2 No murmurs, clicks, or rubs GI: abdomen soft, non-tender, non-distended. no hepatosplenomegaly. no masses Extremities: warm, peripheral pulses palpable and symmetrical. no edema or cyanosis Neuro: A&Ox3. no focal deficits. no speech difficulty or abnormality Skin: warm, dry, intact. Erythema of neck significantly improved from yesterday. - Assessment and Plan (1) Neck abscess Current Visit: Yes Status: Acute Assessment and Plan: Right neck abscess 2/2 IV drug use Afebrile Leukocytosis improved at 5.5 today ENT on board and performed bedside I&D on the - stated no need to pack wound Wound culture preliminary growth of Gm + cocci - await final results with sensitivities Continue IV Vanc (Day 4) (2) Rheumatoid arthritis Current Visit: Yes Status: Acute Assessment and Plan: Inflammatory signs not present at this time. Pain control measures ordered as needed (3) Substance use disorder Current Visit: Yes Status: Acute Assessment and Plan: She will benefit from counseling services prior to discharge. HIV screen ordered - awaiting results Hepatitis A IgM antibody equivocal results - may reflect previous vaccination Positive Hep C antibody (4) Myositis Current Visit: Yes Status: Acute Assessment and Plan: Of SCM as seen on CT Plan as above for neck abscess DVT Prophylaxis: SQ Heparin - Time Spent with Patient Total time spent is greater than 50% in coordination of care (as documented) at patient's floor/unit and/or counseling patient: Internal Medicine: Result - Labs CBC & Chem 7: 10/25/18 06:59 10/25/18 06:59 Labs: Short CBC 10/25/18 Range/Units 06:59 WBC 5.5 (4.3-11.1) K/mcL Hgb 12.2 (11.5-15.4) g/dL Hct 38.8 (35.3-44.9) % Plt Count 282 (140-400) K/mcL Neutrophils # 3.1 (1.6-8.9) K/mcL BMP 10/25/18 06:59 Sodium 140 Potassium 4.0 Chloride 109 H Carbon Dioxide 26 BUN 9 Creatinine 0.71 Glucose 105 Calcium 8.5 L - ABG Interpretation ABG results: PT/INR, D-dimer PT 13.3 Seconds (9.4-12.1) H 10/22/18 05:45 Consult Discharge Plan - Plan Referrals: NONE,PCP [Primary Care Provider] - <Nik Cedillo - Last Filed: 10/26/18 14:17> Hospitalist Progress Note - Encounter Date of Encounter: 10/26/18 - Exam Vitals: Temp Pulse Resp BP Pulse Ox 98.3 F 83 14 113/73 97 10/26/18 10:23 10/26/18 10:23 10/26/18 10:23 10/26/18 10:23 10/26/18 10:23 - Assessment and Plan (1) Neck abscess Current Visit: Yes Status: Acute (2) Rheumatoid arthritis Current Visit: Yes Status: Acute (3) Substance use disorder Current Visit: Yes Status: Acute (4) Myositis Current Visit: Yes Status: Acute - Time Spent with Patient Total time spent is greater than 50% in coordination of care (as documented) at patient's floor/unit and/or counseling patient: Internal Medicine: Result - Labs CBC & Chem 7: 10/26/18 05:03 10/26/18 05:03 Labs: Short CBC 10/26/18 Range/Units 05:03 WBC 5.9 (4.3-11.1) K/mcL Hgb 12.0 (11.5-15.4) g/dL Hct 36.5 (35.3-44.9) % Plt Count 272 (140-400) K/mcL Neutrophils # 3.5 (1.6-8.9) K/mcL BMP 10/26/18 05:03 Sodium 139 Potassium 3.7 Chloride 107 Carbon Dioxide 26 BUN 9 Creatinine 0.63 Glucose 134 H Calcium 8.6 - ABG Interpretation ABG results: PT/INR, D-dimer PT 13.3 Seconds (9.4-12.1) H 10/22/18 05:45 - Impressions Impressions Soft Tissue Neck CT 10/26/18 11:15 IMPRESSION: No residual fluid collection. Right C3-C4 facet arthropathy. Differential includes osteoarthritis, and less commonly infection. Recommend correlation for focal pain and clinical follow-up. D/ / 10/26/2018 12:24:39 Delfin Escamilla MD / bcarter Interpreting Provider: Delfin Escamilla MD - Attending Attestation I examined this patient and my medical decision-making was reviewed with the Resident Physician. I agree with the documented findings, disposition and treatment plan as described except to the extent set forth below. Also see my progress note from today. <Denny Garcia - Last Filed: 10/25/18 18:53> (2) Rheumatoid arthritis Qualifiers: Rheumatoid arthritis location: knee Rheumatoid factor presence: unspecified presence Laterality: bilateral Qualified Code(s): M06.9 - Rheumatoid arthritis, unspecified (4) Myositis Qualifiers: Myositis type: infective Myositis location: other site Qualified Code(s): M60.08 - Infective myositis, other site <Nik Cedillo - Last Filed: 10/26/18 14:17> (2) Rheumatoid arthritis Qualifiers: Rheumatoid arthritis location: knee Rheumatoid factor presence: unspecified presence Laterality: bilateral Qualified Code(s): M06.9 - Rheumatoid arthritis, unspecified (4) Myositis Qualifiers: Myositis type: infective Myositis location: other site Qualified Code(s): M60.08 - Infective myositis, other site
[2018-10-25] MEDS: hydrOXYzine pamoate 25 MG CAPSULE PO PRN (20:47)
[2018-10-26] MEDS: *HR* Heparin 5,000 UNIT/ML VIAL SQ SCH ×4 (00:33→23:41)
[2018-10-26] MEDS: OXYCODONE Oral CONC 10 MG/0.5 ML ORAL.SYG SL PRN ×5 (01:49→22:43)
[2018-10-26] MEDS: Ketorolac 30 MG/ML VIAL IVP PRN ×2 (03:50→11:02)
[2018-10-26 05:44] LABS: Basophils % 0.5 %; Eosinophils # 0.2 K/mcL (0.0-0.6); Eosinophils % 3.9 %; Hematocrit 36.5 % (35.3-44.9); Immature Granulocytes % 0.3 % (0-4); Lymphocytes # 1.6 K/mcL (0.6-4.6); Lymphocytes % 27.9 %; Mean Corpuscular HGB Conc 32.9 g/dL (31.6-35.5); Mean Corpuscular Volume 85.1 fL (83.0-100.0); Mean Platelet Volume 9.6 fL (9.4-12.4); Monocytes # 0.5 K/mcL (0.0-1.3); Monocytes % 7.8 %; Neutrophils # 3.5 K/mcL (1.6-8.9); Platelet Count 272 K/mcL (140-400); Red Blood Count 4.29 M/mcL (3.82-4.97); Red Cell Distribution Width 13.3 % (11.5-14.5); Segmented Neutrophils % 59.6 %
[2018-10-26 06:12] LABS: BUN/Creatinine Ratio 14 (6-26); Blood Urea Nitrogen 9 mg/dL (6-20); Calcium 8.6 mg/dL (8.6-10.3); Carbon Dioxide 26 mEq/L (23-29); Chloride 107 mEq/L (98-107); Glucose 134 mg/dL (70-105); Osmolality,Calculated 289 (280-300); Potassium 3.7 mEq/L (3.5-5.1); Sodium 139 mEq/L (136-145); eGFR For Non-African Americans > 60 (> 60)
[2018-10-26] MEDS ORDERED: Aminoglycoside Consult 1 EACH MC ONE (07:25)
--- NOTE | 2018-10-26 08:49 | Infectious Disease Consult ---
Addendum entered and electronically signed by Puma Velez 10/29/18 08:53: Original Note: Date of Encounter: 10/26/18 Time of Encounter: 08:00 Assessment and Plan (1) Sepsis Status: Resolved Assessment and plan: Met 2 SIRS criteria on admission secondary to neck abscess/cellulitis improved Qualifiers: Sepsis type: sepsis due to unspecified organism Qualified Code(s): A41.9 - Sepsis, unspecified organism (2) Neck abscess Status: Acute Assessment and plan: CT neck 10/22: Fluid collection measuring 2.42.45.1 cm with involvement of the right sternocleidomastoid muscle concerning for myositis Status post I&D 10/23/2018 by ENT at bedside. 5 mL of purulence extracted Cultures positive for Streptococcus anginosos S: Ampicillin, penicillin, cefotaxime, ceftriaxone, levofloxacin, linezolid, tetracycline, vancomycin R: Clindamycin and erythromycin Currently patient is on vancomycin, agree with current antibiotics for now Goal vancomycin trough around 15 Duration of treatment depends on the clinical picture but hopefully we can switch to oral regimen Repeat CT neck to see resolution of the abscess Monitor labs and for drug toxicity (3) Rheumatoid arthritis Status: Acute Assessment and plan: Known history of RA not on DMARDs. Follow primary team recs. Qualifiers: Rheumatoid arthritis location: knee Rheumatoid factor presence: unspecified presence Laterality: bilateral Qualified Code(s): M06.9 - Rheumatoid arthritis, unspecified (4) Substance use disorder Status: Acute Assessment and plan: Known IVDU hx. Follow primary team's recs. (5) Hepatitis C antibody positive in blood Status: Acute Assessment and plan: Patient has hep C panel showing Hep C antibody during this visit. Follow primary team's recs. Infectious Disease HPI - Data of Consult Requesting Physician: Nik Cedillo MD Primary Care Provider: PCP NONE - Consult Narrative Reason for consult: Antibiotic recs History of present illness: Ms. Abad is a 48F presenting with neck pain secondary to abscess consulted to ID for antibiotic recs. She has a history of rheumatoid arthritis (not on DMARDs), fibromyliga, IV drug use, and hepatitis C. Patient reports that on 10/18/16 she was in a lot of pain due to her RA and fibromyalgia, so she tried injecting heroin through her neck with a needle that was dropped on floor. The next day patient experienced redness, warmth, and swelling at the injection site on the R side of her neck. She waited till 10/22 to come to ED because she was embarrassed. During 10/18-10/22 patient tried warm compresses to treat, however symptoms continued to progress. Vitals on admission were T98.9, P98, RR 16, BP 110/73, SaO2 97% on Rm air. Labs: lactic acid 0.8 and WBC of 14. CT done at [facility] ED showed R lateral neck skin thickening and subcutaneous edema consistent with cellulitis and IV vanc was started empirically. On 10/23 Dr. Alexander with ENT drained the induration. Over the course of her stay patients WBC count has fallen and is currently 5.9. Her vitals are currently: T98.3, P80, RR16, BP 103/65, SaO2 97% on Rm air. Patient had Tmax of 100.0F on 10/23. ROS: Patient denies N/V, headache, CP, palpitations, SOB abdominal pain, changes in urination, changes in stooling CC: Nik Cedillo MD Past Med Surg Social Fam HX - Past Medical History Medical history: other Additional medical history: fibromyalgia. RA. bulging disc l2-s16 Psychiatric history: anxiety - Past Surgical History Surgical History: - Social History Smoking Status: Never smoker Smokeless Tobacco Status: No Alcohol use: none Drug use: IV Drug Use Infectious Disease-CN:Meds RX: No Known Home Drugs 10/22/18 [History] Allergy/AdvReac Type Severity Reaction Status Date / Time No Known Allergies Allergy Verified 10/22/18 15:04 - Constitutional Constitutional: Absent: anorexia, chills, headache(s) - Cardiovascular Cardiovascular: Absent: chest pain, irregular heart rhythm, syncope - Respiratory Respiratory: Absent: cough, dyspnea - Gastrointestinal Gastrointestinal: Absent: abdominal pain, change in bowel habits - Genitourinary Genitourinary: Absent: urinary frequency, urinary urgency Exam - Constitutional Vitals: Temp Pulse Resp BP Pulse Ox 98.3 F 85 16 149/53 97 10/26/18 07:06 10/26/18 07:06 10/26/18 07:06 10/26/18 07:06 10/26/18 07:06 Exam: HEENT: Pupils are equal, conjunctiva clear conjunctiva hemorrhage, sclera nonicteric, no balbuena spots noted lungs: good air sounds audible bilaterally did not appreciate any wheezing or rhonchi cardiovascular: regular rate and rhythm, +S1/+S2, no murmurs appreciated abdomen: soft nontender nondistended extremities: radial pulses appreciated b/l neuro: no focal deficits appreciated skin: no endocarditis stigmata muscle skeletal: no joint effusion psych: no agitations, calm Infectious Disease CN: Results - Labs CBC & Chem 7: 10/26/18 05:03 10/26/18 05:03 Cultures: Cultures 10/22/18 Unknown Wound Culture - Preliminary Neck Gram Positive Cocci 10/22/18 05:40 Blood Culture - Preliminary Peripheral Venipuncture Culture is incubating and being continuously monitored for growth. Final report to follow. 10/22/18 05:45 Blood Culture - Preliminary Peripheral Venipuncture Culture is incubating and being continuously monitored for growth. Final report to follow. Serology: Serology 10/22/18 10/22/18 Range/Units 05:43 05:43 Hepatitis A IgM Ab Equivocal H (Nonreactive) Hep Bs Antigen Nonreactive (Nonreactive) Hep B Core IgM Ab Nonreactive (Nonreactive) Hepatitis C Ab Screen Reactive H (Nonreactive) HIV-1 DNA/RNA Qual PCR NOT DETECTED (Not Detected) Consult Discharge Plan - Plan Referrals: NONE,PCP [Primary Care Provider] - - Attending Attestation I examined this patient and my medical decision-making was reviewed with the Resident Physician. I agree with the documented findings, disposition and treatment plan as described except to the extent set forth below. Patient is a 48-year-old woman with history of rheumatoid arthritis, fibromyalgia and IV drug use who also has been recently diagnosed with hepatitis C on this admission came in with right neck pain and swelling. Since admission patient had sepsis criteria and had a neck abscess that was about 2.52.55 cm in diameter that was all point down to the right sternocleidomastoid with myositis. 10/23/2018 patient had I&D at bedside and 5 mL of pus was drained. Cultures grew Streptococcus anginosos. We were asked to evaluate the patient's make further recommendations. CT neck 10/22: Fluid collection measuring 2.42.45.1 cm with involvement of the right sternocleidomastoid muscle concerning for myositis Status post I&D 10/23/2018 by ENT at bedside. 5 mL of purulence extracted Cultures positive for Streptococcus anginosos S: Ampicillin, penicillin, cefotaxime, ceftriaxone, levofloxacin, linezolid, tetracycline, vancomycin R: Clindamycin and erythromycin Currently patient is on vancomycin, agree with current antibiotics for now Goal vancomycin trough around 15 Duration of treatment depends on the clinical picture but hopefully we can switch to oral regimen Repeat CT neck was reviewed by me which showed really no more fluid collection. There is muscle swelling and edema in the sternocleidomastoid. Discussed with the hospitalist team TO discharge from Augmentin to finish 14 days Apparently patient was smoking marijuana with her in the room Monitor labs and for drug toxicity
[2018-10-26] MEDS ORDERED: Isovue-370 500 ML BOTTLE IVP ONE (11:54)
--- NOTE | 2018-10-26 14:23 | Event Note ---
Date of Encounter: 10/26/18 Time of Encounter: 14:18 I examined this patient and my medical decision-making was reviewed with the Resident Physician and Medical Student. I agree with the documented findings, disposition and treatment plan as described except to the extent set forth below. Please see resident note No acute events. Neck pain improving VS: reviewed, hemodynamically stable, afebrile. Physical exam: erythema of neck near resolved, right lateral neck abscess status post drainage is still draining fluid, but now serosanguineous-appearing. Labs: Wound culture sensitivities returned Neck abscess status-post I&D done by ENT. On vancomycin Organism resulted today and is Strep anginosus. ID consulted, recommendations appreciated.
--- NOTE | 2018-10-26 14:51 | Internal Med Progress Note ---
<ChanocatrachitaJose Alejandro R - Last Filed: 10/26/18 15:13> Hospitalist Progress Note - Encounter Date of Encounter: 10/26/18 Time of Encounter: 09:00 - Subjective Interval History: Ms. Abad is a 48 YO female who was admitted on 10/22/18 for R neck abscess. She has a PMHx of IV drug use in the 80's, fibromyalgia and RA. She reports the neck abscess happened 1 day after trying to use IV heroin in her neck. Today Mr. Abad states shes doing alright today. She complains that she has pain in her neck that is poorly controlled with current medication. She states that the abscess is still draining pretty consistently. She describes the discharge as reddish liquid. She states that the swelling and reddness has improved in size but the pain has been consistent. She also complains of R back spasm that has been intermittent during the day. She states it isn't relieved by anything, lasts for a few minutes and goes away. She denies headache, dizziness, fever, chills, chest pain, SOB, abdominal pain, nausea, emesis, constipation, or diarrhea. - Exam Vitals: Temp Pulse Resp BP Pulse Ox 97.7 F 76 16 101/66 96 10/26/18 14:43 10/26/18 14:43 10/26/18 14:43 10/26/18 14:43 10/26/18 14:43 Exam: Gen: Alert and oriented x3 in no acute distress HEENT: Head normocephalic, atraumatic; EOMI, PERRL; Neck with improving erythema on the R side over SCM from jaw to clavicle. Bandage covering open wound ~1.0cm on the R side of her neck on the SCM line that is continously draining serosanguineous fluid CV: RRR no murmurs, gallops or rubs Resp: CTA trevor no wheezes, rales, or rhonchi Extremities: Dorsalis pedis and radial pulses intact trevor, no edema noted UE or LE trevor. - Assessment and Plan (1) Neck abscess Current Visit: Yes Status: Acute Assessment and Plan: R sided neck abscess on SCM line, with improved erythema, and open wound ~1cm in size Wound continues to drain serosanguineous fluid Patient admits to pain without fever, chills, cabrales, dizziness, chest pain or SOB Culture + for strep anginosus resistant to clindamycin Abscess due to IV heroin use CT scan today (10/26/18) showed no abscess present, with erythema of the gladis rounding tissue EENT bedside drainage on 10/23/18 Infectious disease consult for antibiotic regime Patient empirically treated with vancomycin Plan: Patient is a poor candidate for home IV medication. Switch patient to IV unison for 1 - 2 days, then switch to Augmentin for 14 days PO at discharge. (2) Rheumatoid arthritis Current Visit: Yes Status: Chronic Assessment and Plan: Patient has no signs/symptoms/or complaints related to RA at this time Patient history of RA with knee involvement Patient was on methotrexate in past, stopped because she felt better Patients RA is managed by [facility] Plan: Have patient f/u with deputy [facility] civil division at [facility] (3) Substance use disorder Current Visit: Yes Status: Acute Assessment and Plan: Patient admits to IV drug use in the 80's Patient admits to IV heroin use Patient Hep C + likely due to PHx of IV drug use Plan: Patient would benefit from counseling services prior to discharge (4) Hepatitis C antibody positive in blood Current Visit: Yes Status: Chronic Assessment and Plan: Patient test + for Hep C during this visit Likely due to PMhx of IV drug abuse in the 80's Patient is asymptomatic at this time No hepatomegally on PE (5) DVT prophylaxis Current Visit: Yes Status: Acute Assessment and Plan: heparin 5000 units subq DVT Prophylaxis: subq heparin - Time Spent with Patient Total time spent is greater than 50% in coordination of care (as documented) at patient's floor/unit and/or counseling patient: less than 15 minutes Plan of Care Discussed with: patient Internal Medicine: Result - Labs CBC & Chem 7: 10/26/18 05:03 10/26/18 05:03 Labs: Short CBC 10/26/18 Range/Units 05:03 WBC 5.9 (4.3-11.1) K/mcL Hgb 12.0 (11.5-15.4) g/dL Hct 36.5 (35.3-44.9) % Plt Count 272 (140-400) K/mcL Neutrophils # 3.5 (1.6-8.9) K/mcL BMP 10/26/18 05:03 Sodium 139 Potassium 3.7 Chloride 107 Carbon Dioxide 26 BUN 9 Creatinine 0.63 Glucose 134 H Calcium 8.6 - ABG Interpretation ABG results: PT/INR, D-dimer PT 13.3 Seconds (9.4-12.1) H 10/22/18 05:45 - Impressions Impressions Soft Tissue Neck CT 10/26/18 11:15 IMPRESSION: No residual fluid collection. Right C3-C4 facet arthropathy. Differential includes osteoarthritis, and less commonly infection. Recommend correlation for focal pain and clinical follow-up. D/ / 10/26/2018 12:24:39 Delfin Escamilla MD / bcarter Interpreting Provider: Delfin Escamilla MD Consult Discharge Plan - Plan Referrals: NONE,PCP [Primary Care Provider] - <Nik Cedillo - Last Filed: 10/27/18 17:18> Hospitalist Progress Note - Encounter Date of Encounter: 10/27/18 - Exam Vitals: Temp Pulse Resp BP Pulse Ox 98.1 F 75 15 113/72 97 10/27/18 13:37 10/27/18 13:37 10/27/18 13:37 10/27/18 13:37 10/27/18 13:37 - Assessment and Plan (1) Neck abscess Current Visit: Yes Status: Chronic (2) Rheumatoid arthritis Current Visit: Yes Status: Acute (3) Substance use disorder Current Visit: Yes Status: Acute (4) Myositis Current Visit: Yes Status: Acute - Time Spent with Patient Total time spent is greater than 50% in coordination of care (as documented) at patient's floor/unit and/or counseling patient: Internal Medicine: Result - Labs CBC & Chem 7: 10/27/18 04:43 10/27/18 04:43 Labs: Short CBC 10/27/18 Range/Units 04:43 WBC 6.8 (4.3-11.1) K/mcL Hgb 11.4 L (11.5-15.4) g/dL Hct 35.2 L (35.3-44.9) % Plt Count 295 (140-400) K/mcL Neutrophils # 3.7 (1.6-8.9) K/mcL BMP 10/27/18 04:43 Sodium 138 Potassium 4.2 Chloride 107 Carbon Dioxide 24 BUN 9 Creatinine 0.62 Glucose 102 Calcium 8.8 - ABG Interpretation ABG results: PT/INR, D-dimer PT 13.3 Seconds (9.4-12.1) H 10/22/18 05:45 - Impressions Impressions Soft Tissue Neck CT 10/26/18 11:15 IMPRESSION: No residual fluid collection. Right C3-C4 facet arthropathy. Differential includes osteoarthritis, and less commonly infection. Recommend correlation for focal pain and clinical follow-up. D/ / 10/26/2018 12:24:39 Delfin Escamilla MD / bcarter Interpreting Provider: Delifn Escamilla MD - Attending Attestation I examined this patient and my medical decision-making was reviewed with the Medical Student and Resident Physician. I agree with the documented findings, disposition and treatment plan as described except to the extent set forth below. Please see my progress note from today. <Jose Alejandro Pimentel - Last Filed: 10/26/18 15:13> (2) Rheumatoid arthritis Qualifiers: Rheumatoid arthritis location: knee Rheumatoid factor presence: unspecified presence Laterality: bilateral Qualified Code(s): M06.9 - Rheumatoid arthritis, unspecified <Nik Cedillo - Last Filed: 10/27/18 17:18> (2) Rheumatoid arthritis Qualifiers: Rheumatoid arthritis location: knee Rheumatoid factor presence: unspecified presence Laterality: bilateral Qualified Code(s): M06.9 - Rheumatoid arthritis, unspecified (4) Myositis Qualifiers: Myositis type: infective Myositis location: other site Qualified Code(s): M60.08 - Infective myositis, other site
--- NOTE | 2018-10-26 16:47 | ENT - Progress Note ---
Date of Encounter: 10/26/18 Time of Encounter: 16:45 - Assessment and Plan (1) Neck abscess Current Visit: Yes Status: Acute Large gaping incision right neck no active purulent drainage tenderness and neck slightly improving recommending continued use of heat no packing placed for follow-up and reassessment Maya continued antibiotics pending possible change on culture results essentially unchanged from yesterday except small reduction in swelling and small increase in ability to turn her neck a little more for continued IV management with antibiotics culture directed antibiotic therapy no packing was placed as the wound was open and gaping changed to Unasyn today CT reveals no substantial abscess just thickening of the sternocleidomastoid rec ommending continued IV antibiotics consider discharge tomorrow on by mouth Augmentin with daily follow-ups in the office commending every 8 hour changes of the dressing and continued application of heat Subjective Patient reports: no new complaints, still having pain, pain is less, other (The neck continues to drain slowly but not a lot of pus the wound is still widely open and does not require packing and is being allowed to close from the inside out the CT scan obtained reveals no abscess but there is a significant swelling of the sternocleidomastoid adjacent to the abscess site the organism that came back today was strep and the vancomycin has been discontinued and the patient has been placed on Unasyn considered discharged tomorrow on by mouth Augmentin with follow-up every day or every other day in the office) Objective Initial Vital Signs Temp Pulse Resp BP Pulse Ox 98.8 F 89 16 110/73 97 10/22/18 04:59 10/22/18 04:59 10/22/18 04:59 10/22/18 04:59 10/22/18 04:59 - General physical appearance well developed, well nourished, moderate distress - Eyes PERRL, normal ocular movement - ENT normal pinna, normal nares, normal mucosa, no hearing loss - Neck other (Large gaping opening in the right neck at site of abscess drainage with persistent firmness of the sternocleidomastoid muscle no signs of abscess afebrile generally improving hopefully changed to Unasyn will be beneficial) - Labs 10/26/18 05:03 10/26/18 05:03 Diabetes panel 10/26/18 Range/Units 05:03 Sodium 139 (136-145) mEq/L Potassium 3.7 (3.5-5.1) mEq/L Chloride 107 (98-107) mEq/L Carbon Dioxide 26 (23-29) mEq/L BUN 9 (6-20) mg/dL Creatinine 0.63 (0.60-1.20) mg/dL Glucose 134 H (70-105) mg/dL Calcium 8.6 (8.6-10.3) mg/dL Calcium panel 10/26/18 Range/Units 05:03 Calcium 8.6 (8.6-10.3) mg/dL Pituitary panel 10/26/18 Range/Units 05:03 Sodium 139 (136-145) mEq/L Potassium 3.7 (3.5-5.1) mEq/L Chloride 107 (98-107) mEq/L Carbon Dioxide 26 (23-29) mEq/L BUN 9 (6-20) mg/dL Creatinine 0.63 (0.60-1.20) mg/dL Glucose 134 H (70-105) mg/dL Calcium 8.6 (8.6-10.3) mg/dL Adrenal panel 10/26/18 Range/Units 05:03 Sodium 139 (136-145) mEq/L Potassium 3.7 (3.5-5.1) mEq/L Chloride 107 (98-107) mEq/L Carbon Dioxide 26 (23-29) mEq/L BUN 9 (6-20) mg/dL Creatinine 0.63 (0.60-1.20) mg/dL Glucose 134 H (70-105) mg/dL Calcium 8.6 (8.6-10.3) mg/dL Consult Discharge Plan - Plan Referrals: NONE,PCP [Primary Care Provider] -
[2018-10-26] MEDS: Ampicillin/Sulbactam 3,000 MG in 0.9 % Sodium Chloride Mini Bag 100 ML IVPB SCH ×2 (16:50→23:40)
[2018-10-27] MEDS: OXYCODONE Oral CONC 10 MG/0.5 ML ORAL.SYG SL PRN ×5 (02:46→21:27)
[2018-10-27 05:04] LABS: Basophils # 0.1 K/mcL (0.0-0.2); Basophils % 0.7 %; Eosinophils # 0.3 K/mcL (0.0-0.6); Eosinophils % 3.7 %; Hematocrit 35.2 % (35.3-44.9); Hemoglobin 11.4 g/dL (11.5-15.4); Immature Granulocytes % 0.3 % (0-4); Lymphocytes # 2.1 K/mcL (0.6-4.6); Lymphocytes % 31.2 %; Mean Corpuscular HGB Conc 32.4 g/dL (31.6-35.5); Mean Corpuscular Hemoglobin 27.6 pg (28.0-33.3); Mean Corpuscular Volume 85.2 fL (83.0-100.0); Mean Platelet Volume 9.6 fL (9.4-12.4); Monocytes # 0.6 K/mcL (0.0-1.3); Monocytes % 9.4 %; Neutrophils # 3.7 K/mcL (1.6-8.9); Platelet Count 295 K/mcL (140-400); Red Blood Count 4.13 M/mcL (3.82-4.97); Red Cell Distribution Width 13.3 % (11.5-14.5); Segmented Neutrophils % 54.7 %
[2018-10-27 06:09] LABS: BUN/Creatinine Ratio 15 (6-26); Blood Urea Nitrogen 9 mg/dL (6-20); Calcium 8.8 mg/dL (8.6-10.3); Carbon Dioxide 24 mEq/L (23-29); Chloride 107 mEq/L (98-107); Glucose 102 mg/dL (70-105); Osmolality,Calculated 285 (280-300); Potassium 4.2 mEq/L (3.5-5.1); Sodium 138 mEq/L (136-145); eGFR For Non-African Americans > 60 (> 60)
[2018-10-27] MEDS: Ampicillin/Sulbactam 3,000 MG in 0.9 % Sodium Chloride Mini Bag 100 ML IVPB SCH ×3 (06:11→18:27)
[2018-10-27] MEDS: *HR* Heparin 5,000 UNIT/ML VIAL SQ SCH ×2 (07:48→15:42)
--- NOTE | 2018-10-27 08:14 | Internal Med Progress Note ---
Hospitalist Progress Note - Encounter Date of Encounter: 10/27/18 Time of Encounter: 08:13 - Subjective Interval History: Ms. Abad is a 48 YO female who was admitted on 10/22/18 for R neck abscess. She has a PMHx of IV drug use in the 80's, fibromyalgia and RA. She reports the neck abscess happened 1 day after trying to use IV heroin in her neck. - Exam Vitals: Temp Pulse Resp BP Pulse Ox 98.3 F 61 15 113/73 97 10/27/18 06:17 10/27/18 06:17 10/27/18 06:17 10/27/18 06:17 10/27/18 06:17 - Assessment and Plan (1) Neck abscess Current Visit: Yes Status: Acute (2) Rheumatoid arthritis Current Visit: Yes Status: Acute (3) Substance use disorder Current Visit: Yes Status: Acute (4) Hepatitis C antibody positive in blood Current Visit: Yes Status: Acute (5) DVT prophylaxis Current Visit: Yes Status: Acute - Time Spent with Patient Total time spent is greater than 50% in coordination of care (as documented) at patient's floor/unit and/or counseling patient: Internal Medicine: Result - Labs CBC & Chem 7: 10/27/18 04:43 10/27/18 04:43 Labs: Short CBC 10/27/18 Range/Units 04:43 WBC 6.8 (4.3-11.1) K/mcL Hgb 11.4 L (11.5-15.4) g/dL Hct 35.2 L (35.3-44.9) % Plt Count 295 (140-400) K/mcL Neutrophils # 3.7 (1.6-8.9) K/mcL BMP 10/27/18 04:43 Sodium 138 Potassium 4.2 Chloride 107 Carbon Dioxide 24 BUN 9 Creatinine 0.62 Glucose 102 Calcium 8.8 - ABG Interpretation ABG results: PT/INR, D-dimer PT 13.3 Seconds (9.4-12.1) H 10/22/18 05:45 - Impressions Impressions Soft Tissue Neck CT 10/26/18 11:15 IMPRESSION: No residual fluid collection. Right C3-C4 facet arthropathy. Differential includes osteoarthritis, and less commonly infection. Recommend correlation for focal pain and clinical follow-up. D/ / 10/26/2018 12:24:39 Delfin Escamilla MD / aleshia Interpreting Provider: Delfin Escamilla MD Consult Discharge Plan - Plan Referrals: NONE,PCP [Primary Care Provider] - (2) Rheumatoid arthritis Qualifiers: Rheumatoid arthritis location: knee Rheumatoid factor presence: unspecified presence Laterality: bilateral Qualified Code(s): M06.9 - Rheumatoid arthritis, unspecified
--- NOTE | 2018-10-27 08:46 | Infectious Disease Progress No ---
Date of Encounter: 10/27/18 Time of Encounter: 08:00 - Assessment and Plan (1) Sepsis Current Visit: Yes Status: Resolved Met 2 SIRS criteria on admission secondary to neck abscess/cellulitis No longer septic Qualifiers: Sepsis type: Streptococcus, other Qualified Code(s): A40.8 - Other streptococcal sepsis (2) Neck abscess Current Visit: Yes Status: Chronic CT neck 10/22: Fluid collection measuring 2.42.45.1 cm with involvement of the right sternocleidomastoid muscle concerning for myositis Status post I&D 10/23/2018 by ENT at bedside. 5 mL of purulence extracted Repeat CT neck did not show spread of pathology Wound cultures positive for Streptococcus anginosos S: Ampicillin, penicillin, cefotaxime, ceftriaxone, levofloxacin, linezolid, tetracycline, vancomycin R: Clindamycin and erythromycin Patient started on Unasyn 3g IPB Q6HR yesterday, IV Vanc d/c - okay to switch to augmentin PO for outpatient Monitor labs and for drug toxicity (3) Rheumatoid arthritis Current Visit: Yes Status: Acute Known history of RA not on DMARDs. Follow primary team recs. Qualifiers: Rheumatoid arthritis location: knee Rheumatoid factor presence: unspecified presence Laterality: bilateral Qualified Code(s): M06.9 - Rheumatoid arthritis, unspecified (4) Substance use disorder Current Visit: Yes Status: Acute Known IVDU hx. Follow primary team's recs. (5) Hepatitis C antibody positive in blood Current Visit: Yes Status: Acute Patient has hep C panel showing Hep C antibody during this visit. Follow primary team's recs. - Subjective Interval history: Patient reports no acute events overnight and is in no distress. Infect Dis PN-Objective Data - Labs CBC & Chem 7: 10/27/18 04:43 10/27/18 04:43 Labs: Laboratory Results - last 24 hr 10/27/18 10/27/18 04:43 04:43 WBC 6.8 RBC 4.13 Hgb 11.4 L Hct 35.2 L MCV 85.2 MCH 27.6 L MCHC 32.4 RDW 13.3 Plt Count 295 MPV 9.6 Immature Gran % 0.3 Seg Neutrophils % 54.7 Lymphocytes % 31.2 Monocytes % 9.4 Eosinophils % 3.7 Basophils % 0.7 Neutrophils # 3.7 Lymphocytes # 2.1 Monocytes # 0.6 Eosinophils # 0.3 Basophils # 0.1 Sodium 138 Potassium 4.2 Chloride 107 Carbon Dioxide 24 BUN 9 Creatinine 0.62 Est GFR ( Amer) > 60 Est GFR (Non-Af Amer) > 60 BUN/Creatinine Ratio 15 Glucose 102 Calculated Osmolality 285 Calcium 8.8 Cultures: Cultures 10/22/18 Unknown Anaerobic Culture - Final Neck No anaerobes were recovered. 10/22/18 05:40 Blood Culture - Final Peripheral Venipuncture No growth. Final report. 10/22/18 05:45 Blood Culture - Final Peripheral Venipuncture No growth. Final report. 10/22/18 Unknown Wound Culture - Final Neck Streptococcus anginosus Serology 10/22/18 10/22/18 Range/Units 05:43 05:43 Hepatitis A IgM Ab Equivocal H (Nonreactive) Hep Bs Antigen Nonreactive (Nonreactive) Hep B Core IgM Ab Nonreactive (Nonreactive) Hepatitis C Ab Screen Reactive H (Nonreactive) HIV-1 DNA/RNA Qual PCR NOT DETECTED (Not Detected) - Impressions Impressions Soft Tissue Neck CT 10/26/18 11:15 IMPRESSION: No residual fluid collection. Right C3-C4 facet arthropathy. Differential includes osteoarthritis, and less commonly infection. Recommend correlation for focal pain and clinical follow-up. D/ / 10/26/2018 12:24:39 Delfin Escamilla MD / bcarter Interpreting Provider: Delfin Escamilla MD Exam - Constitutional Vitals: Temp Pulse Resp BP Pulse Ox 98.3 F 61 15 113/73 97 10/27/18 06:17 10/27/18 06:17 10/27/18 06:17 10/27/18 06:17 10/27/18 06:17 General appearance: average body habitus, cooperative, no acute distress Exam: General: NAD, cooperative, AOX3 Eyes: EOMI, no jaundice or balbuena spots Neck: R sided surgical wound [id number], with mild drainage that is clear, erythematous boarders CV: RRR, +S1/+S2, no murmurs appreciated ABD: soft, NT, ND Extermities: radial pulses appreciated b/l, no osler nodes Psych: Euthymic AOx3 Neuro: no focal deficits appreciated Consult Discharge Plan - Plan Referrals: NONE,PCP [Primary Care Provider] - - Attending Attestation I examined this patient and my medical decision-making was reviewed with the Resident Physician. I agree with the documented findings, disposition and treatment plan as described except to the extent set forth below. Patient seen and examined. Doing well clinically. neck pain improved still some serous drainage. No oral thrush, no chest pain, no shortness of breath, no diarrhea, no urinary symptoms. continue unasyn while inpatient, on d/c switch to oral augmenting 875 mg po bid through nov 08 d/w patient hepatitis c positive results and treatment options
--- NOTE | 2018-10-27 10:10 | Internal Med Progress Note ---
<Nik Cedillo - Last Filed: 10/27/18 17:19> Hospitalist Progress Note - Encounter Date of Encounter: 10/27/18 - Exam Vitals: Temp Pulse Resp BP Pulse Ox 98.1 F 75 15 113/72 97 10/27/18 13:37 10/27/18 13:37 10/27/18 13:37 10/27/18 13:37 10/27/18 13:37 - Assessment and Plan (1) Neck abscess Current Visit: Yes Status: Chronic (2) Rheumatoid arthritis Current Visit: Yes Status: Acute (3) Substance use disorder Current Visit: Yes Status: Acute (4) Myositis Current Visit: Yes Status: Acute - Time Spent with Patient Total time spent is greater than 50% in coordination of care (as documented) at patient's floor/unit and/or counseling patient: Internal Medicine: Result - Labs CBC & Chem 7: 10/27/18 04:43 10/27/18 04:43 Labs: Short CBC 10/27/18 Range/Units 04:43 WBC 6.8 (4.3-11.1) K/mcL Hgb 11.4 L (11.5-15.4) g/dL Hct 35.2 L (35.3-44.9) % Plt Count 295 (140-400) K/mcL Neutrophils # 3.7 (1.6-8.9) K/mcL BMP 10/27/18 04:43 Sodium 138 Potassium 4.2 Chloride 107 Carbon Dioxide 24 BUN 9 Creatinine 0.62 Glucose 102 Calcium 8.8 - ABG Interpretation ABG results: PT/INR, D-dimer PT 13.3 Seconds (9.4-12.1) H 10/22/18 05:45 - Impressions Impressions Soft Tissue Neck CT 10/26/18 11:15 IMPRESSION: No residual fluid collection. Right C3-C4 facet arthropathy. Differential includes osteoarthritis, and less commonly infection. Recommend correlation for focal pain and clinical follow-up. D/ / 10/26/2018 12:24:39 Delfin Escamilla MD / [email or web address] Interpreting Provider: Delfin Escamilla MD Consult Discharge Plan - Plan Referrals: NONE,PCP [Primary Care Provider] - - Attending Attestation I examined this patient and my medical decision-making was reviewed with the Resident Physician. I agree with the documented findings, disposition and treatment plan as described except to the extent set forth below. No acute events, continues to show slow improvement. VS reviewed, examination of neck shows wound is draining scant fluid, shows improvement. Continue Unasyn. Plan for DC after 1 to 2 more days of IV Unasyn and then likely discharge home on Augmentin. <Denny Garcia - Last Filed: 10/27/18 17:43> Hospitalist Progress Note - Encounter Date of Encounter: 10/27/18 Time of Encounter: 09:00 - Subjective Interval History: Ms. Abad is a 48F with PMH of rheumatoid arthritis, fibromyalgia, and IV drug abuse. She was admitted for a right neck abscess after attempted IV heroin use. Dr. Alexander performed bedside I&D of abscess on 10/23. Pt seen and examined at bedside. States her pain has improved and is more controlled with medication now. Continues to deny any fever, chills, chest pain, shortness of breath, abdominal pain, nausea, vomiting, headaches, numbness, or tingling. - Exam Vitals: Temp Pulse Resp BP Pulse Ox 98.3 F 61 15 113/73 97 10/27/18 06:17 10/27/18 06:17 10/27/18 06:17 10/27/18 06:17 10/27/18 06:17 Exam: General: well developed, well nourished female in no acute distress Head: normocephalic and atraumatic Eyes: PERRL, EOMI, no sclera icterus, conjunctiva pink Neck: supple, trachea midline, dressing in place over neck abscess with serosanguinous drainage visible. Erythema surrounding wound improved Lungs: CTA bilaterally. non-labored breathing. No wheezes, rales, or rhonchi Heart: RRR +s1 +s2 No murmurs, clicks, or rubs GI: abdomen soft, non-tender, non-distended. no hepatosplenomegaly. no masses Extremities: warm, peripheral pulses palpable and symmetrical. no edema or cyanosis Neuro: A&Ox3. no focal deficits. no speech difficulty or abnormality Skin: warm, dry, intact. Erythema of neck significantly improved from yesterday. - Assessment and Plan (1) Neck abscess Current Visit: Yes Status: Chronic Assessment and Plan: Right neck abscess 2/2 IV drug use Afebrile Leukocytosis resolved Culture grew Streptococcus angiosus ID on board ENT on board and performed bedside I&D on the - please see their notes for wound dressing recs Continue IV Unasyn (2) Myositis Current Visit: Yes Status: Acute Assessment and Plan: Of SCM as seen on CT Plan as above for neck abscess (3) Rheumatoid arthritis Current Visit: Yes Status: Acute Assessment and Plan: Inflammatory signs not present at this time. Pain control measures ordered as needed (4) Substance use disorder Current Visit: Yes Status: Acute Assessment and Plan: She will benefit from counseling services prior to discharge. HIV screen ordered - awaiting results Hepatitis A IgM antibody equivocal results - may reflect previous vaccination Positive Hep C antibody DVT Prophylaxis: SQ heparin - Time Spent with Patient Total time spent is greater than 50% in coordination of care (as documented) at patient's floor/unit and/or counseling patient: Internal Medicine: Result - Labs CBC & Chem 7: 10/27/18 04:43 10/27/18 04:43 Labs: Short CBC 10/27/18 Range/Units 04:43 WBC 6.8 (4.3-11.1) K/mcL Hgb 11.4 L (11.5-15.4) g/dL Hct 35.2 L (35.3-44.9) % Plt Count 295 (140-400) K/mcL Neutrophils # 3.7 (1.6-8.9) K/mcL BMP 10/27/18 04:43 Sodium 138 Potassium 4.2 Chloride 107 Carbon Dioxide 24 BUN 9 Creatinine 0.62 Glucose 102 Calcium 8.8 - ABG Interpretation ABG results: PT/INR, D-dimer PT 13.3 Seconds (9.4-12.1) H 10/22/18 05:45 - Impressions Impressions Soft Tissue Neck CT 10/26/18 11:15 IMPRESSION: No residual fluid collection. Right C3-C4 facet arthropathy. Differential includes osteoarthritis, and less commonly infection. Recommend correlation for focal pain and clinical follow-up. D/ / 10/26/2018 12:24:39 Delfin Escamilla MD / aleshia Interpreting Provider: Delfin Escamilla MD __ <Nik Cedillo - Last Filed: 10/27/18 17:19> (2) Rheumatoid arthritis Qualifiers: Rheumatoid arthritis location: knee Rheumatoid factor presence: unspecified presence Laterality: bilateral Qualified Code(s): M06.9 - Rheumatoid arthritis, unspecified (4) Myositis Qualifiers: Myositis type: infective Myositis location: other site Qualified Code(s): M60.08 - Infective myositis, other site <Denny Garcia - Last Filed: 10/27/18 17:43> (2) Myositis Qualifiers: Myositis type: infective Myositis location: other site Qualified Code(s): M60.08 - Infective myositis, other site (3) Rheumatoid arthritis Qualifiers: Rheumatoid arthritis location: knee Rheumatoid factor presence: unspecified presence Laterality: bilateral Qualified Code(s): M06.9 - Rheumatoid arthritis, unspecified
--- NOTE | 2018-10-27 13:13 | ENT - Progress Note ---
Date of Encounter: 10/27/18 Time of Encounter: 13:10 - Assessment and Plan (1) Neck abscess Current Visit: Yes Status: Chronic Repeat CT from 10/26/2018 did not demonstrate abscess recollection. Continue current antibiotic regimen Per ID Patient has been afebrile. WBC is within normal limits. The wound continues to close from the inside out. Discontinued betadine washes q 8 hours and will change wound dressing order to bandage changes qs 8 hours. May consider using alginate dressing in the future at tomorrow's exam. When patient is able to transition to PO per ID recs, ok to discharge from ENT persective with 5-7 days follow up in office after discharge. Will continue to round on patient while in patient. Patient will likely need home health for wound care. (2) Substance use disorder Current Visit: Yes Status: Acute (3) Myositis Current Visit: Yes Status: Acute No signs of abscess on initial or repeat CT. Qualifiers: Myositis type: infective Myositis location: other site Qualified Code(s): M60.08 - Infective myositis, other site Subjective Narrative: Patient seen and examined today at bedside. Patient denies any worsening of her symptoms. She states that the pain is continuing to decrease and she is not feeling a burning sensation in the neck. She feels that the erythema and edema were continuing to decrease. She has been afebrile. Cultures were resulted and ID was consult did and they have placed her on Unasyn. Objective Initial Vital Signs Temp Pulse Resp BP Pulse Ox 98.8 F 89 16 110/73 97 10/22/18 04:59 10/22/18 04:59 10/22/18 04:59 10/22/18 04:59 10/22/18 04:59 - Neck other (The right sternocleidomastoid muscle still demonstrates edema. The wound from the previous I&D is beginning to close. The edges do not show any evidence of devitalization. The wound does demonstrate granulation tissue. When probed the wound does not track underneath the skin. There is no purulent drainage.) - Labs 10/27/18 04:43 10/27/18 04:43 Diabetes panel 10/27/18 Range/Units 04:43 Sodium 138 (136-145) mEq/L Potassium 4.2 (3.5-5.1) mEq/L Chloride 107 (98-107) mEq/L Carbon Dioxide 24 (23-29) mEq/L BUN 9 (6-20) mg/dL Creatinine 0.62 (0.60-1.20) mg/dL Glucose 102 (70-105) mg/dL Calcium 8.8 (8.6-10.3) mg/dL Calcium panel 10/27/18 Range/Units 04:43 Calcium 8.8 (8.6-10.3) mg/dL Pituitary panel 10/27/18 Range/Units 04:43 Sodium 138 (136-145) mEq/L Potassium 4.2 (3.5-5.1) mEq/L Chloride 107 (98-107) mEq/L Carbon Dioxide 24 (23-29) mEq/L BUN 9 (6-20) mg/dL Creatinine 0.62 (0.60-1.20) mg/dL Glucose 102 (70-105) mg/dL Calcium 8.8 (8.6-10.3) mg/dL Adrenal panel 10/27/18 Range/Units 04:43 Sodium 138 (136-145) mEq/L Potassium 4.2 (3.5-5.1) mEq/L Chloride 107 (98-107) mEq/L Carbon Dioxide 24 (23-29) mEq/L BUN 9 (6-20) mg/dL Creatinine 0.62 (0.60-1.20) mg/dL Glucose 102 (70-105) mg/dL Calcium 8.8 (8.6-10.3) mg/dL Consult Discharge Plan - Plan Referrals: NONE,PCP [Primary Care Provider] -
[2018-10-28] MEDS: Ampicillin/Sulbactam 3,000 MG in 0.9 % Sodium Chloride Mini Bag 100 ML IVPB SCH ×4 (00:10→18:11)
[2018-10-28] MEDS: *HR* Heparin 5,000 UNIT/ML VIAL SQ SCH ×3 (00:11→16:59)
[2018-10-28] MEDS: OXYCODONE Oral CONC 10 MG/0.5 ML ORAL.SYG SL PRN (02:26)
[2018-10-28] MEDS: hydrOXYzine pamoate 25 MG CAPSULE PO PRN (06:32)
--- NOTE | 2018-10-28 08:35 | Infectious Disease Progress No ---
Date of Encounter: 10/28/18 Time of Encounter: 12:07 - Assessment and Plan (1) Sepsis Current Visit: Yes Status: Resolved Met 2 SIRS criteria on admission secondary to neck abscess/cellulitis No longer septic Qualifiers: Sepsis type: Streptococcus, other Qualified Code(s): A40.8 - Other streptococcal sepsis (2) Neck abscess Current Visit: Yes Status: Chronic CT neck 10/22: Fluid collection measuring 2.42.45.1 cm with involvement of the right sternocleidomastoid muscle concerning for myositis Status post I&D 10/23/2018 by ENT at bedside. 5 mL of purulence extracted Repeat CT neck did not show spread of pathology Wound cultures positive for Streptococcus anginosos S: Ampicillin, penicillin, cefotaxime, ceftriaxone, levofloxacin, linezolid, tetracycline, vancomycin R: Clindamycin and erythromycin Patient started on Unasyn 3g IPB Q6HR yesterday, IV Vanc d/c - okay to switch to augmentin PO for outpatient Monitor labs and for drug toxicity (3) Rheumatoid arthritis Current Visit: Yes Status: Acute Known history of RA not on DMARDs. Follow primary team recs. Qualifiers: Rheumatoid arthritis location: knee Rheumatoid factor presence: unspecified presence Laterality: bilateral Qualified Code(s): M06.9 - Rheumatoid arthritis, unspecified (4) Substance use disorder Current Visit: Yes Status: Acute Known IVDU hx. Follow primary team's recs. (5) Hepatitis C antibody positive in blood Current Visit: Yes Status: Acute Patient has hep C panel showing Hep C antibody during this visit. Follow primary team's recs. - Subjective Interval history: Patient reports no acute events overnight and is in no distress. Infect Dis PN-Objective Data - Labs CBC & Chem 7: 10/28/18 09:49 10/28/18 08:53 Cultures: Cultures 10/22/18 Unknown Anaerobic Culture - Final Neck No anaerobes were recovered. 10/22/18 05:40 Blood Culture - Final Peripheral Venipuncture No growth. Final report. 10/22/18 05:45 Blood Culture - Final Peripheral Venipuncture No growth. Final report. 10/22/18 Unknown Wound Culture - Final Neck Streptococcus anginosus Serology 10/22/18 10/22/18 Range/Units 05:43 05:43 Hepatitis A IgM Ab Equivocal H (Nonreactive) Hep Bs Antigen Nonreactive (Nonreactive) Hep B Core IgM Ab Nonreactive (Nonreactive) Hepatitis C Ab Screen Reactive H (Nonreactive) HIV-1 DNA/RNA Qual PCR NOT DETECTED (Not Detected) - Impressions Impressions Soft Tissue Neck CT 10/26/18 11:15 IMPRESSION: No residual fluid collection. Right C3-C4 facet arthropathy. Differential includes osteoarthritis, and less commonly infection. Recommend correlation for focal pain and clinical follow-up. D/ / 10/26/2018 12:24:39 Delfin Escamilla MD / bcarter Interpreting Provider: Delfin Escamilla MD Exam - Constitutional Vitals: Temp Pulse Resp BP Pulse Ox 97.4 F L 73 14 81/54 96 10/28/18 07:34 10/28/18 07:34 10/28/18 07:34 10/28/18 07:34 10/28/18 07:34 General appearance: average body habitus, no acute distress Exam: General: NAD, cooperative, AOX3 Eyes: EOMI, no jaundice or balbuena spots Neck: R sided surgical wound [id number], with mild drainage that is clear, erythematous boarders CV: RRR, +S1/+S2, no murmurs appreciated ABD: soft, NT, ND Extermities: radial pulses appreciated b/l, no osler nodes Psych: Euthymic AOx3 Neuro: no focal deficits appreciated Consult Discharge Plan - Plan Referrals: NONE,PCP [Primary Care Provider] - - Attending Attestation I examined this patient and my medical decision-making was reviewed with the Resident Physician. I agree with the documented findings, disposition and treatment plan as described except to the extent set forth below.
[2018-10-28 09:40] LABS: BUN/Creatinine Ratio 14 (6-26); Blood Urea Nitrogen 10 mg/dL (6-20); Carbon Dioxide 22 mEq/L (23-29); Chloride 106 mEq/L (98-107); Glucose 135 mg/dL (70-105); Osmolality,Calculated 287 (280-300); Potassium 3.9 mEq/L (3.5-5.1); Sodium 138 mEq/L (136-145); eGFR For Non-African Americans > 60 (> 60)
[2018-10-28 10:17] LABS: Basophils % 0.5 %; Eosinophils # 0.2 K/mcL (0.0-0.6); Eosinophils % 2.4 %; Hemoglobin 11.3 g/dL (11.5-15.4); Mean Platelet Volume 9.7 fL (9.4-12.4)
[2018-10-28 10:26] LABS: Hematocrit 35.1 % (35.3-44.9); Immature Granulocytes % 0.5 % (0-4); Lymphocytes # 2.3 K/mcL (0.6-4.6); Lymphocytes % 30.8 %; Mean Corpuscular HGB Conc 32.2 g/dL (31.6-35.5); Mean Corpuscular Hemoglobin 27.7 pg (28.0-33.3); Monocytes # 0.5 K/mcL (0.0-1.3); Monocytes % 6.1 %; Neutrophils # 4.4 K/mcL (1.6-8.9); Platelet Count 276 K/mcL (140-400); Red Blood Count 4.08 M/mcL (3.82-4.97); Red Cell Distribution Width 13.7 % (11.5-14.5); Segmented Neutrophils % 59.7 %
--- NOTE | 2018-10-28 11:29 | Discharge Summary ---
<Joanna Ford - Last Filed: 10/29/18 15:23> Date of Encounter: 10/29/18 - Discharge Diagnosis (1) Neck abscess Status: Chronic (2) Rheumatoid arthritis Status: Acute Qualifiers: Rheumatoid arthritis location: knee Rheumatoid factor presence: unspecified presence Laterality: bilateral Qualified Code(s): M06.9 - Rheumatoid ar thritis, unspecified (3) Substance use disorder Status: Acute (4) Myositis Status: Acute Qualifiers: Myositis type: infective Myositis location: other site Qualified Code(s): M60.08 - Infective myositis, other site (5) Hepatitis C antibody positive in blood Status: Acute (6) Hypotension Status: Resolved Qualifiers: Hypotension type: unspecified hypotension type Qualified Code(s): I95.9 - Hypotension, unspecified Hospital course: Ms. Abad is a 48 year old female - Time Spent with Patient Total time spent providing and/or coordinating discharge services: - Discharge Medications Prescriptions: Naproxen [Naprosyn] 250 mg PO Q6HR 3 Days #12 tablet Amoxicillin/Clavulanate [Augmentin] 875 mg PO BIDWM 7 Days #14 tablet Home Medications: Amoxicillin/Clavulanate [Augmentin] 875 mg PO BIDWM 7 Days #14 tablet 10/29/18 [Rx] Naproxen [Naprosyn] 250 mg PO Q6HR 3 Days #12 tablet 10/29/18 [Rx] Allergies/Adverse Reactions: Allergy/AdvReac Type Severity Reaction Status Date / Time No Known Allergies Allergy Verified 10/22/18 15:04 Date of admission: 10/22/18 05:50 Primary care physician: PCP NONE Consults: 10/22/18 05:27 Consult to ENT [CONS] Routine Consulting Provider: ENT [place] Reason for Consult: 48 year old woman transferred from [facility] with a large neck abscess after IVDU. Call Completed: Yes 10/25/18 17:52 Consult to Infectious Diseases [CONS] Routine Consulting Provider: Infectious Disease Jaimee Reason for Consult: Antibiotic recs Call Completed: No - Constitutional Vitals: Temp Pulse Resp BP Pulse Ox 97.4 F L 86 15 122/73 96 10/29/18 11:32 10/29/18 11:32 10/29/18 11:32 10/29/18 11:32 10/29/18 11:32 - Patient Status Disposition: Home, Self-Care Condition: Fair - Discharge Instructions Instructions: Sepsis (DC) Follow Up With: Dequan Alexander DO [Partnered Physician] - (F/u in 5-7 days) Aurelio Argueta DO [Resident] - 10/30/18 1:30 pm Ezekiel Phillips MD [Partnered Physician] - (F/U for positive Hepatitis C antibody) - Attending Attestation I examined this patient and my medical decision-making was reviewed with the Resident Physician Dr Garcia. I agree with the documented findings, disposition and treatment plan as described except to the extent set forth below. Mrs Abad is admitted with neck abscess. She has been treated with IV abx and is now medically stable for dc to home with outpt fu. awake, alert, having RA joint pain in knees and hips today and some discomfort in neck. Denies any fevers, chills, nausea or emeis, Demonstrated good skill with RN in changing dressing and has no questions. As she has no pcp she is requesting to follow up with residency clinic here. Discussed discharge plan, abx, conservative pain management and close outpt fu with pt and answered all questions. She feels safe regarding discharge and will not be returning to home with . gen- awake, alert, appears stated age eyes- pupils equal round cv- reg rate and rhythm, normal s1,s2, no murmurs appreciated lungs- ctabl, no wheezing, rhonchi or crackles, normal resp effort on ra abd- soft, non tender, non distended, + bs skin- right neck dressing c/d/i without surrounding erythema neuro- AAOx3 Neck abscess- bl cxs neg, has had 7d unasyn, will transition to augmentin to complete 14d course as per id, fu with Dr Alexander in 5-7d, fu in residency clinic tomorrow, conservative pain control, she will be changing her own dressing and was educated and demonstrated change with nursing prior to dc Hep C- pt aware of diagnosis, declined gi eval here, will fu with residency clinic tomorrow and gi referral outpt Low Bps ressolved with holding of opiates- now normotensive SW has worked with pt regarding her discharge plan given social issues further diagnoses and plan as noted by resident <Denny Garcia - Last Filed: 10/29/18 21:41> - NOTES TO OUTPATIENT PROVIDER Notes to Outpatient Provider: Ms. Abad was admitted on 10/22/18 for a neck abscess caused by use of a dirty needle while attempting to inject Heroin into her IJ. She underwent a bedside I&D with Dr. Alexander on 10/23. Wound cultures grew Strep anginosus. Per infectious disease recommendations her abx were de- escalated to Unasyn and she was discharged with a script for Augmentin to complete a 14 day course of abx. She is to follow up with Dr. Alexander in 5-7 days for further wound care management. Date of Encounter: 10/29/18 Time of Encounter: 09:45 - Discharge Diagnosis (1) Neck abscess Priority: Primary Status: Chronic Assessment and Plan: Right neck abscess 2/2 IV drug use Afebrile Leukocytosis resolved Culture grew Streptococcus angiosus ID on board ENT on board and performed bedside I&D on the Day 7 of 14 antibiotic therapy. Sent script for Augmentin BID on discharge BID dressing changes with alginate dressing per ENT recs (2) Hypotension Priority: Secondary Status: Resolved Assessment and Plan: Noted the morning of 10/28/18 Low of 81/54 Subsequent reading of 93/80 No fever or leukocytosis Held opiates UDS was beckford-negative, despite receiving multiple doses of Oxycodone during admission Received 1L IV fluids BP this morning 106/67 -> 105/66 Remains stable Ok to discharge. Recommend following up with PCP Qualifiers: Hypotension type: unspecified hypotension type Qualified Code(s): I95.9 - Hypotension, unspecified (3) Myositis Priority: Secondary Status: Acute Assessment and Plan: Of SCM as seen on CT Plan as above for neck abscess Qualifiers: Myositis type: infective Myositis location: other site Qualified Code(s): M60.08 - Infective myositis, other site (4) Hepatitis C antibody positive in blood Priority: Secondary Status: Acute Assessment and Plan: pt aware of diagnosis deferring inpatient workup and GI eval Continues to deny any abdominal pain Will refer to GI for outpatient follow up at discharge (5) Rheumatoid arthritis Priority: Secondary Status: Acute Assessment and Plan: Inflammatory signs not present at this time. Qualifiers: Rheumatoid arthritis location: knee Rheumatoid factor presence: unspecified presence Laterality: bilateral Qualified Code(s): M06.9 - Rheumatoid arthritis, unspecified (6) Substance use disorder Priority: Secondary Status: Acute Assessment and Plan: She will benefit from counseling services prior to discharge. HIV screen ordered - awaiting results Hepatitis A IgM antibody equivocal results - may reflect previous vaccination Positive Hep C antibody Hospital course: Ms. Abad is a 48 year old female who presented on 10/22/18 for a neck abscess caused by use of a dirty needle while attempting to inject Heroin into her IJ. IV antibiotics were initiated with Vancomycin. She underwent a bedside I&D with Dr. Alexander on 10/23. Wound cultures grew Strep anginosus. Per infectious disease recommendations her abx were de-escalated to Unasyn once culture resulted. She was discharged with a script for Augmentin to complete a 14 day course of abx. HIV testing was negative, however Hepatitis C antibodies were positive. Diagnosis was discussed with pt. She denied any RUQ pain or episodes of jaundice. Pt deferred further workup for Hep C diagnosis. The day prior to discharge, the patient was found to be lethargic and hypotensive. Opiate pain medication was held and a UDS was obtained with concerns for further substance abuse. UDS resulted negative for all substances, including opiates, which pt had been receiving throughout her admission. Pt denied any further substance use and stated it was indeed her urine she provided for UDS. She is to follow up with Dr. Alexander in 5-7 days for further wound care management. Discharge discussed with: patient, nurse, social work, immigration consultant - Time Spent with Patient Total time spent providing and/or coordinating discharge services: Date of admission: 10/22/18 05:50 Primary care physician: PCP NONE Consults: 10/22/18 05:27 Consult to ENT [CONS] Routine Consulting Provider: ENT Jaimee Reason for Consult: 48 year old woman transferred from [facility] with a large neck abscess after IVDU. Call Completed: Yes 10/25/18 17:52 Consult to Infectious Diseases [CONS] Routine Consulting Provider: Infectious Disease Jaimee Reason for Consult: Antibiotic recs Call Completed: No Discharging clinician: Denny Garcia - Constitutional Vitals: Temp Pulse Resp BP Pulse Ox 98.1 F 80 16 93/80 94 10/28/18 11:21 10/28/18 11:21 10/28/18 11:21 10/28/18 11:21 10/28/18 11:21 Exam: General: well developed, well nourished female in no acute distress Head: normocephalic and atraumatic Eyes: PERRL, EOMI, no sclera icterus, conjunctiva pink Neck: supple, trachea midline, dressing in place over neck abscess with serosanguinous drainage visible. Erythema surrounding wound nearly resolved. Lungs: CTA bilaterally. non-labored breathing. No wheezes, rales, or rhonchi Heart: RRR +s1 +s2 No murmurs, clicks, or rubs GI: abdomen soft, non-tender, non-distended. no hepatosplenomegaly. no masses Extremities: warm, peripheral pulses palpable and symmetrical. no edema or c yanosis Neuro: A&Ox3. no focal deficits. no speech difficulty or abnormality Skin: warm, dry, intact. Erythema of neck improved as above. - Patient Status Functional capacity at discharge: independent ambulation Overall status at discharge: patient is back to baseline - Diet and Activity Activity: increase activity as tolerated, resume usual activities as tolerated Diet: regular diet
--- NOTE | 2018-10-28 12:56 | ENT - Progress Note ---
Date of Encounter: 10/28/18 Time of Encounter: 12:20 - Assessment and Plan (1) Neck abscess Current Visit: Yes Status: Chronic Repeat CT from 10/26/2018 did not demonstrate abscess recollection. Per ID, the patient has been changed to oral antibiotic for discharge. Patient has been afebrile. WBC is within normal limits. The wound continues to close from the inside out. The patient can change the dressing at home every 12 hours. I would like to have the patient follow up in clinic in approximately 5-7 days. (2) Substance use disorder Current Visit: Yes Status: Acute Per Primary Team. (3) Myositis Current Visit: Yes Status: Acute No signs of abscess on initial or repeat CT. Qualifiers: Myositis type: infective Myositis location: other site Qualified Code(s): M60.08 - Infective myositis, other site Subjective Narrative: Patient seen and examined at bedside. No new complaints, feels as though the pain continues to decrease. No acute events overnight. Objective Initial Vital Signs Temp Pulse Resp BP Pulse Ox 98.8 F 89 16 110/73 97 10/22/18 04:59 10/22/18 04:59 10/22/18 04:59 10/22/18 04:59 10/22/18 04:59 - Neck other (The right neck wound continues to decrease in size, there is no purulent drainage, the wound edges are erythematous and demonstrates granulation tissue.) - Labs 10/28/18 09:49 10/28/18 08:53 Diabetes panel 10/28/18 Range/Units 08:53 Sodium 138 (136-145) mEq/L Potassium 3.9 (3.5-5.1) mEq/L Chloride 106 (98-107) mEq/L Carbon Dioxide 22 L (23-29) mEq/L BUN 10 (6-20) mg/dL Creatinine 0.74 (0.60-1.20) mg/dL Glucose 135 H (70-105) mg/dL Calcium 9.0 (8.6-10.3) mg/dL Calcium panel 10/28/18 Range/Units 08:53 Calcium 9.0 (8.6-10.3) mg/dL Pituitary panel 10/28/18 Range/Units 08:53 Sodium 138 (136-145) mEq/L Potassium 3.9 (3.5-5.1) mEq/L Chloride 106 (98-107) mEq/L Carbon Dioxide 22 L (23-29) mEq/L BUN 10 (6-20) mg/dL Creatinine 0.74 (0.60-1.20) mg/dL Glucose 135 H (70-105) mg/dL Calcium 9.0 (8.6-10.3) mg/dL Adrenal panel 10/28/18 Range/Units 08:53 Sodium 138 (136-145) mEq/L Potassium 3.9 (3.5-5.1) mEq/L Chloride 106 (98-107) mEq/L Carbon Dioxide 22 L (23-29) mEq/L BUN 10 (6-20) mg/dL Creatinine 0.74 (0.60-1.20) mg/dL Glucose 135 H (70-105) mg/dL Calcium 9.0 (8.6-10.3) mg/dL Consult Discharge Plan - Plan Referrals: NONE,PCP [Primary Care Provider] -
[2018-10-28] MEDS ORDERED: 0.9 % Sodium Chloride 1,000 ML IVC ONE (14:47)
--- NOTE | 2018-10-28 15:25 | Event Note ---
Date of Encounter: 10/28/18 Time of Encounter: 09:15 to serve as attending attestation pending completion of resident daily progress note. I examined this patient and my medical decision-making was reviewed with the Resident Physician Dr Garcia. I agree with the documented findings, disposition and treatment plan as described except to the extent set forth below. Mrs Abad is admitted with neck abscess. asleep, awakes to name. very tired. states she didn't sleep last night at all. took vistaril this morning at 6:30 and now very tired. denies fevers, chills, nausea or emesis. discussed events with her last night and asked pt if she feels safe to dc to home with him from this hospitalization and she remarked that she will dc to her sister's house and not to home with . gen- somnolent,appears stated age eyes- pupils equal round cv- reg rate and rhythm, normal s1,s2, no murmurs appreciated lungs- ctabl, no wheezing, rhonchi or crackles abd- soft, non tender, non distended, + bs skin- right neck dressing c/d/i neuro- AAOx3 Neck abscess- cont unasyn while inpt, then to augmentin at al, SW working with pt regarding insurance and home services for wound changes, fu with Dr Alexander in 5-7d Hep C- pt aware of diagnosis, declined gi eval here, will send with gi follow up appt at al Low Bps today without fever or leukocytosis- hold opiates, check uds this morning given her somnolence and drug use history, IVFs SW will discuss with pt again her dc plans to sister's home further diagnoses and plan as noted by resident
--- NOTE | 2018-10-28 16:51 | Internal Med Progress Note ---
<Joanna Ford - Last Filed: 10/28/18 16:55> Hospitalist Progress Note - Encounter Date of Encounter: 10/28/18 - Exam Vitals: Temp Pulse Resp BP Pulse Ox 98.1 F 80 16 93/80 94 10/28/18 11:21 10/28/18 11:21 10/28/18 11:21 10/28/18 11:21 10/28/18 11:21 - Assessment and Plan (1) Neck abscess Current Visit: Yes Status: Chronic (2) Rheumatoid arthritis Current Visit: Yes Status: Acute (3) Substance use disorder Current Visit: Yes Status: Acute (4) Myositis Current Visit: Yes Status: Acute - Time Spent with Patient Total time spent is greater than 50% in coordination of care (as documented) at patient's floor/unit and/or counseling patient: Internal Medicine: Result - Labs CBC & Chem 7: 10/28/18 09:49 10/28/18 08:53 Labs: Short CBC 10/28/18 Range/Units 09:49 WBC 7.4 (4.3-11.1) K/mcL Hgb 11.3 L (11.5-15.4) g/dL Hct 35.1 L (35.3-44.9) % Plt Count 276 (140-400) K/mcL Neutrophils # 4.4 (1.6-8.9) K/mcL BMP 10/28/18 08:53 Sodium 138 Potassium 3.9 Chloride 106 Carbon Dioxide 22 L BUN 10 Creatinine 0.74 Glucose 135 H Calcium 9.0 - ABG Interpretation ABG results: PT/INR, D-dimer PT 13.3 Seconds (9.4-12.1) H 10/22/18 05:45 Consult Discharge Plan - Plan Referrals: NONE,PCP [Primary Care Provider] - - Attending Attestation I examined this patient and my medical decision-making was reviewed with the Resident Physician Dr Garcia. I agree with the documented findings, disposition and treatment plan as described except to the extent set forth below. Mrs Abad is admitted with neck abscess. asleep, awakes to name. very tired. states she didn't sleep last night at all. took vistaril this morning at 6:30 and now very tired. denies fevers, chills, nausea or emesis. discussed events with her last night and asked pt if she feels safe to dc to home with him from this hospitalization and she remarked that she will dc to her sister's house and not to home with . gen- somnolent,appears stated age eyes- pupils equal round cv- reg rate and rhythm, normal s1,s2, no murmurs appreciated lungs- ctabl, no wheezing, rhonchi or crackles abd- soft, non tender, non distended, + bs skin- right neck dressing c/d/i neuro- AAOx3 Neck abscess- cont unasyn while inpt, then to augmentin at id, SW working with pt regarding insurance and home services for wound changes, fu with Dr Alexander in 5-7d Hep C- pt aware of diagnosis, declined gi eval here, will send with gi follow up appt at id Low Bps today without fever or leukocytosis- hold opiates, check uds this morning given her somnolence and drug use history, IVFs SW will discuss with pt again her dc plans to sister's home further diagnoses and plan as noted by resident <Denny Garcia - Last Filed: 10/28/18 17:28> Hospitalist Progress Note - Encounter Date of Encounter: 10/28/18 Time of Encounter: 09:45 - Subjective Interval History: Ms. Abad is a 48F with PMH of rheumatoid arthritis, fibromyalgia, and IV drug abuse. She was admitted for a right neck abscess after attempted IV heroin use. Dr. Alexander performed bedside I&D of abscess on 10/23. Pt seen and examined at bedside. States her pain has improved and is more controlled with medication now. States she had difficulty falling asleep last night, but took hydroxyzine and it helped her sleep 2-3 hours. Continues to deny any fever, chills, chest pain, shortness of breath, abdominal pain, nausea, vomiting, headaches, numbness, or tingling. - Exam Vitals: Temp Pulse Resp BP Pulse Ox 98.1 F 80 16 93/80 94 10/28/18 11:21 10/28/18 11:21 10/28/18 11:21 10/28/18 11:21 10/28/18 11:21 Exam: General: well developed, well nourished female in no acute distress Head: normocephalic and atraumatic Eyes: PERRL, EOMI, no sclera icterus, conjunctiva pink Neck: supple, trachea midline, dressing in place over neck abscess. Minimal erythema surrounding wound. Lungs: CTA bilaterally. non-labored breathing. No wheezes, rales, or rhonchi Heart: RRR +s1 +s2 No murmurs, clicks, or rubs GI: abdomen soft, non-tender, non-distended. no hepatosplenomegaly. no masses Extremities: warm, peripheral pulses palpable and symmetrical. no edema or cyano sis Neuro: A&Ox3. no focal deficits. no speech difficulty or abnormality Skin: warm, dry, intact. Erythema of neck significantly improved as above. - Assessment and Plan (1) Hypotension Current Visit: Yes Status: Acute Assessment and Plan: Noted this morning at 81/54 Subsequent reading of 93/80 No fever or leukocytosis Hold opiates Check UDS IV fluids Continue to monitor (2) Neck abscess Current Visit: Yes Status: Chronic Assessment and Plan: Right neck abscess 2/2 IV drug use Afebrile Leukocytosis resolved Culture grew Streptococcus angiosus ID on board ENT on board and performed bedside I&D on the - please see their notes for wound dressing recs Continue IV Unasyn, plan to switch to augementin on discharge per ID recs BID dressing changes with alginate dressing per ENT recs (3) Myositis Current Visit: Yes Status: Acute Assessment and Plan: Of SCM as seen on CT Plan as above for neck abscess (4) Rheumatoid arthritis Current Visit: Yes Status: Acute Assessment and Plan: Inflammatory signs not present at this time. Holding opiates as above (5) Hepatitis C antibody positive in blood Current Visit: Yes Status: Acute Assessment and Plan: pt aware of diagnosis deferring inpatient workup and GI eval Continues to deny any abdominal pain Will refer to GI for outpatient follow up at discharge (6) Substance use disorder Current Visit: Yes Status: Acute Assessment and Plan: She will benefit from counseling services prior to discharge. HIV screen ordered - awaiting results Hepatitis A IgM antibody equivocal results - may reflect previous vaccination Positive Hep C antibody DVT Prophylaxis: SQ heparin - Time Spent with Patient Total time spent is greater than 50% in coordination of care (as documented) at patient's floor/unit and/or counseling patient: Internal Medicine: Result - Labs CBC & Chem 7: 10/28/18 09:49 10/28/18 08:53 Labs: Short CBC 10/28/18 Range/Units 09:49 WBC 7.4 (4.3-11.1) K/mcL Hgb 11.3 L (11.5-15.4) g/dL Hct 35.1 L (35.3-44.9) % Plt Count 276 (140-400) K/mcL Neutrophils # 4.4 (1.6-8.9) K/mcL BMP 10/28/18 08:53 Sodium 138 Potassium 3.9 Chloride 106 Carbon Dioxide 22 L BUN 10 Creatinine 0.74 Glucose 135 H Calcium 9.0 - ABG Interpretation ABG results: PT/INR, D-dimer PT 13.3 Seconds (9.4-12.1) H 10/22/18 05:45 <Joanna Ford - Last Filed: 10/28/18 16:55> (2) Rheumatoid arthritis Qualifiers: Rheumatoid arthritis location: knee Rheumatoid factor presence: unspecified presence Laterality: bilateral Qualified Code(s): M06.9 - Rheumatoid arthritis, unspecified (4) Myositis Qualifiers: Myositis type: infective Myositis location: other site Qualified Code(s): M60.08 - Infective myositis, other site <Denny Garcia - Last Filed: 10/28/18 17:28> (1) Hypotension Qualifiers: Hypotension type: unspecified hypotension type Qualified Code(s): I95.9 - Hypotension, unspecified (3) Myositis Qualifiers: Myositis type: infective Myositis location: other site Qualified Code(s): M60.08 - Infective myositis, other site (4) Rheumatoid arthritis Qualifiers: Rheumatoid arthritis location: knee Rheumatoid factor presence: unspecified presence Laterality: bilateral Qualified Code(s): M06.9 - Rheumatoid arthritis, unspecified
[2018-10-28 21:11] LABS: Amphetamine Screen,Urine Negative ng/mL (Cutoff=1000); Barbiturate Screen,Urine Negative ng/mL (Cutoff=200); Benzodiazepines Screen,Urine Negative ng/mL (Cutoff=200); Cannabinoid Screen,Urine Negative ng/mL (Cutoff = 50); Cocaine Screen,Urine Negative ng/mL (Cutoff= 300); Opiate Screen,Urine Negative ng/mL (Cutoff=300); Phencyclidine Screen,Urine Negative ng/mL (Cutoff=25)
[2018-10-29] MEDS ORDERED: traMADol 50 MG TABLET PO ONE (01:21)
[2018-10-29] MEDS: Ampicillin/Sulbactam 3,000 MG in 0.9 % Sodium Chloride Mini Bag 100 ML IVPB SCH ×3 (01:40→12:08)
[2018-10-29] MEDS: *HR* Heparin 5,000 UNIT/ML VIAL SQ SCH ×2 (01:40→08:10)
--- NOTE | 2018-10-29 08:55 | Infectious Disease Progress No ---
Date of Encounter: 10/29/18 Time of Encounter: 09:00 - Assessment and Plan (1) Sepsis Status: Resolved Met 2 SIRS criteria on admission secondary to neck abscess/cellulitis Resolved Qualifiers: Sepsis type: Streptococcus, other Qualified Code(s): A40.8 - Other streptococcal sepsis (2) Neck abscess Status: Chronic CT neck 10/22: Fluid collection measuring 2.42.45.1 cm with involvement of the right sternocleidomastoid muscle concerning for myositis Status post I&D 10/23/2018 by ENT at bedside. 5 mL of purulence extracted Repeat CT neck 10/26/18 shows no more fluid collection Wound cultures positive for Streptococcus anginosos S: Ampicillin, penicillin, cefotaxime, ceftriaxone, levofloxacin, linezolid, tetracycline, vancomycin R: Clindamycin and erythromycin oral augmentin 875 mg po bid through Nov 06 2018 From ID standpoint okay to d/c (3) Rheumatoid arthritis Status: Acute Known history of RA not on DMARDs. Follow primary team recs. Qualifiers: Rheumatoid arthritis location: knee Rheumatoid factor presence: unspecified presence Laterality: bilateral Qualified Code(s): M06.9 - Rheumatoid arthritis, unspecified (4) Substance use disorder Status: Acute Known IVDU hx. Follow primary team's recs. (5) Hepatitis C antibody positive in blood Status: Acute Source not clear? IVDU vs work ? (pt works as a dentist escrow assistant) discussed treatment options to follow up as outpatient with GI - Subjective Interval history: Patient reports no acute events overnight and is in no distress. Infect Dis PN-Objective Data - Labs CBC & Chem 7: 10/29/18 11:12 10/29/18 11:12 Labs: Laboratory Results - last 24 hr 10/28/18 10/28/18 10/28/18 08:53 08:53 09:49 WBC 7.4 RBC 4.08 Hgb 11.3 L Hct 35.1 L MCV 86.0 MCH 27.7 L MCHC 32.2 RDW 13.7 Plt Count 276 MPV 9.7 Immature Gran % 0.5 Seg Neutrophils % 59.7 Lymphocytes % 30.8 Monocytes % 6.1 Eosinophils % 2.4 Basophils % 0.5 Neutrophils # 4.4 Lymphocytes # 2.3 Monocytes # 0.5 Eosinophils # 0.2 Basophils # 0.0 Sodium 138 Potassium 3.9 Chloride 106 Carbon Dioxide 22 L BUN 10 Creatinine 0.74 Est GFR ( Amer) > 60 Est GFR (Non-Af Amer) > 60 BUN/Creatinine Ratio 14 Glucose 135 H Calculated Osmolality 287 Calcium 9.0 Urine Opiates Screen Ur Barbiturates Screen Ur Phencyclidine Scrn Ur Amphetamines Screen U Benzodiazepines Scrn Urine Cocaine Screen U Marijuana (THC) Screen Ur Drug Screen Interp Specimen Rejected Clotted 10/28/18 20:49 WBC RBC Hgb Hct MCV MCH MCHC RDW Plt Count MPV Immature Gran % Seg Neutrophils % Lymphocytes % Monocytes % Eosinophils % Basophils % Neutrophils # Lymphocytes # Monocytes # Eosinophils # Basophils # Sodium Potassium Chloride Carbon Dioxide BUN Creatinine Est GFR ( Amer) Est GFR (Non-Af Amer) BUN/Creatinine Ratio Glucose Calculated Osmolality Calcium Urine Opiates Screen Negative Ur Barbiturates Screen Negative Ur Phencyclidine Scrn Negative Ur Amphetamines Screen Negative U Benzodiazepines Scrn Negative Urine Cocaine Screen Negative U Marijuana (THC) Screen Negative Ur Drug Screen Interp See Below Specimen Rejected Cultures: Cultures 10/22/18 Unknown Anaerobic Culture - Final Neck No anaerobes were recovered. 10/22/18 05:40 Blood Culture - Final Peripheral Venipuncture No growth. Final report. 10/22/18 05:45 Blood Culture - Final Peripheral Venipuncture No growth. Final report. 10/22/18 Unknown Wound Culture - Final Neck Streptococcus anginosus Serology 10/22/18 10/22/18 Range/Units 05:43 05:43 Hepatitis A IgM Ab Equivocal H (Nonreactive) Hep Bs Antigen Nonreactive (Nonreactive) Hep B Core IgM Ab Nonreactive (Nonreactive) Hepatitis C Ab Screen Reactive H (Nonreactive) HIV-1 DNA/RNA Qual PCR NOT DETECTED (Not Detected) Exam - Constitutional Vitals: Temp Pulse Resp BP Pulse Ox 97.9 F 67 15 105/66 97 10/29/18 06:18 10/29/18 06:18 10/29/18 06:18 10/29/18 06:18 10/29/18 06:18 Exam: Head: normocephalic, atraumatic Eyes: EOMI, no balbuena spots, Neck: supple, trachea midline, bandaged lesion on right side of neck not examin ed because new dressing. Patient does not endorse increased tenderness. No erythema growth from yesterday beyond dressing margins. CV: RRR, +S1/S2, no murmurs appreciated Resp: Mild crackles at lower lung bases b/l. Abd: NT, ND, ostomy Ext: Radial pulses felt b/l Neuro: no focal deficits appreciated Psych: AOx3 euthymic Consult Discharge Plan - Plan Instructions: Sepsis (DC) Referrals: Dequan Alexander DO [Partnered Physician] - (F/u in 5-7 days) Aurelio Argueta DO [Resident] - 10/30/18 1:30 pm Prescriptions: RX: Naproxen [Naprosyn] 250 mg PO Q6HR 3 Days #12 tablet Amoxicillin/Clavulanate [Augmentin] 875 mg PO BIDWM 7 Days #14 tablet - Attending Attestation I examined this patient and my medical decision-making was reviewed with the Resident Physician. I agree with the documented findings, disposition and treatment plan as described except to the extent set forth below.
[2018-10-29] MEDS ORDERED: OXYCODONE Oral CONC 10 MG/0.5 ML ORAL.SYG SL PRN ×2 (10:42→10:43)
[2018-10-29 11:26] LABS: Basophils % 0.5 %; Eosinophils # 0.2 K/mcL (0.0-0.6); Eosinophils % 1.9 %; Hematocrit 38.9 % (35.3-44.9); Hemoglobin 12.4 g/dL (11.5-15.4); Immature Granulocytes % 0.6 % (0-4); Lymphocytes # 2.2 K/mcL (0.6-4.6); Lymphocytes % 26.1 %; Mean Corpuscular HGB Conc 31.9 g/dL (31.6-35.5); Mean Corpuscular Hemoglobin 27.6 pg (28.0-33.3); Mean Corpuscular Volume 86.6 fL (83.0-100.0); Mean Platelet Volume 9.5 fL (9.4-12.4); Monocytes # 0.8 K/mcL (0.0-1.3); Monocytes % 9.4 %; Neutrophils # 5.2 K/mcL (1.6-8.9); Platelet Count 273 K/mcL (140-400); Red Blood Count 4.49 M/mcL (3.82-4.97); Red Cell Distribution Width 13.6 % (11.5-14.5); Segmented Neutrophils % 61.5 %
[2018-10-29 11:35] VITALS: BP 122/73
[2018-10-29 11:41] LABS: BUN/Creatinine Ratio 14 (6-26); Blood Urea Nitrogen 9 mg/dL (6-20); Calcium 9.2 mg/dL (8.6-10.3); Carbon Dioxide 28 mEq/L (23-29); Chloride 108 mEq/L (98-107); Glucose 101 mg/dL (70-105); Osmolality,Calculated 289 (280-300); Potassium 3.9 mEq/L (3.5-5.1); Sodium 140 mEq/L (136-145); eGFR For Non-African Americans > 60 (> 60)
--- NOTE | 2018-10-29 14:30 | Event Note ---
Date of Encounter: 10/29/18 Time of Encounter: 09:00 to serve as attestation pending resident completion of DC summary today I examined this patient and my medical decision-making was reviewed with the Resident Physician Dr Garcia. I agree with the documented findings, disposition and treatment plan as described except to the extent set forth below. Mrs Abad is admitted with neck abscess. She has been treated with IV abx and is now medically stable for dc to home with outpt fu. awake, alert, having RA joint pain in knees and hips today and some discomfort in neck. Denies any fevers, chills, nausea or emeis, Demonstrated good skill with RN in changing dressing and has no questions. As she has no pcp she is requesting to follow up with residency clinic here. Discussed discharge plan, abx, conservative pain management and close outpt fu with pt and answered all questions. She feels safe regarding discharge and will not be returning to home with . gen- awake, alert, appears stated age eyes- pupils equal round cv- reg rate and rhythm, normal s1,s2, no murmurs appreciated lungs- ctabl, no wheezing, rhonchi or crackles, normal resp effort on ra abd- soft, non tender, non distended, + bs skin- right neck dressing c/d/i without surrounding erythema neuro- AAOx3 Neck abscess- bl cxs neg, has had 7d unasyn, will transition to augmentin to complete 14d course as per id, fu with Dr Alexander in 5-7d, fu in residency clinic tomorrow, conservative pain control, she will be changing her own dressing and was educated and demonstrated change with nursing prior to dc Hep C- pt aware of diagnosis, declined gi eval here, will fu with residency clinic tomorrow and gi referral outpt Low Bps ressolved with holding of opiates- now normotensive SW has worked with pt regarding her discharge plan given social issues further diagnoses and plan as noted by resident
== END 2018-10-29 14:48 | disposition home or self-care (01) | DRG 710 ==
LOC: 3NENU → SUATTDRO 05:50 → 3ANU 10-24 14:11
PROVIDERS: ADMIT Internal Medicine; ATTEND Internal Medicine

== ENCOUNTER 2020-03-30 13:47 | Observation (INO) ==
[2020-03-30] MEDS ORDERED: Isovue-370 500 ML BOTTLE IVP ONE (14:20)
[2020-03-30] MEDS ORDERED: Ketorolac 15 MG/ML VIAL IVP ONE (14:24)
[2020-03-30] MEDS ORDERED: 0.9 % Sodium Chloride 1,000 ML IVC ONE (14:24)
[2020-03-30] MEDS ORDERED: Piperacillin/Tazobactam 3.375 GM in 0.9 % Sodium Chloride Mini Bag 100 ML IVPB ONE (14:46)
[2020-03-30 14:52] LABS: Basophils % 0.5 %; Eosinophils # 0.2 K/mcL (0.0-0.6); Eosinophils % 1.8 %; Hematocrit 37.1 % (35.3-44.9); Hemoglobin 11.3 g/dL (11.5-15.4); Immature Granulocytes % 0.2 % (0-4); Lymphocytes # 1.9 K/mcL (0.6-4.6); Lymphocytes % 22.3 %; Mean Corpuscular HGB Conc 30.5 g/dL (31.6-35.5); Mean Corpuscular Hemoglobin 25.5 pg (28.0-33.3); Mean Corpuscular Volume 83.6 fL (83.0-100.0); Mean Platelet Volume 9.6 fL (9.4-12.4); Monocytes # 0.9 K/mcL (0.0-1.3); Monocytes % 10.2 %; Neutrophils # 5.5 K/mcL (1.6-8.9); Platelet Count 244 K/mcL (140-400); Red Blood Count 4.44 M/mcL (3.82-4.97); Red Cell Distribution Width 14.2 % (11.5-14.5); White Blood Count 8.4 K/mcL (4.3-11.1)
[2020-03-30 15:11] LABS: Alanine Aminotransferase 22 Units/L (7-52); Albumin 3.6 g/dL (3.5-5.7); Alkaline Phosphatase 51 Units/L (34-104); Aspartate Amino Transferase 17 Units/L (13-39); BUN/Creatinine Ratio 13 (6-26); Bilirubin,Indirect 0.3 mg/dL (0.0-1.0); Bilirubin,Total 0.3 mg/dL (0.3-1.0); Blood Urea Nitrogen 10 mg/dL (6-20); Calcium 8.7 mg/dL (8.6-10.3); Carbon Dioxide 28 mEq/L (23-29); Chloride 102 mEq/L (98-107); Globulin 3.7 g/dL (2.4-3.5); Glucose 133 mg/dL (70-105); Osmolality,Calculated 283 (280-300); Phosphorous 3.1 mg/dL (2.7-4.5); Potassium 3.3 mEq/L (3.5-5.1); Sodium 136 mEq/L (136-145); Total Protein 7.3 g/dL (6.4-8.9); Troponin I < 0.03 ng/mL (< 0.04); eGFR For African Americans > 60 (> 60); eGFR For Non-African Americans > 60 (> 60)
[2020-03-30] MEDS ORDERED: Lidocaine/EPI 1:100k 1% 30 ML VIAL INFILT ONE (16:09)
[2020-03-30] MEDS ORDERED: Mag Hydrox/Al Hydrox/Simeth 30 ML UDC PO PRN (16:37)
[2020-03-30] MEDS ORDERED: Acetaminophen 325 MG TABLET PO PRN (16:37)
[2020-03-30] MEDS ORDERED: MOM Conc 10 ML UD.LIQ PO PRN (16:37)
[2020-03-30] MEDS ORDERED: Naloxone 0.4 MG/ML INJ IVP PRN (16:37)
[2020-03-30] MEDS ORDERED: Ondansetron 4 MG/2 ML VIAL IVP PRN (16:37)
[2020-03-30] MEDS ORDERED: *HR* Promethazine 25 MG/ML VIAL IVP PRN (16:37)
[2020-03-30] MEDS ORDERED: *HR* HYDROcodone/Acet 5/325 mg TABLET PO PRN (16:37)
[2020-03-30] MEDS: *HR* Heparin 5,000 UNIT/ML VIAL SQ SCH (19:05)
[2020-03-31 04:35] LABS: Basophils % 0.5 %; Eosinophils # 0.1 K/mcL (0.0-0.6); Eosinophils % 1.2 %; Hematocrit 37.1 % (35.3-44.9); Hemoglobin 11.8 g/dL (11.5-15.4); Immature Granulocytes % 0.3 % (0-4); Lymphocytes # 1.3 K/mcL (0.6-4.6); Lymphocytes % 14.3 %; Mean Corpuscular HGB Conc 31.8 g/dL (31.6-35.5); Mean Corpuscular Hemoglobin 26.1 pg (28.0-33.3); Mean Corpuscular Volume 82.1 fL (83.0-100.0); Mean Platelet Volume 9.8 fL (9.4-12.4); Monocytes # 0.7 K/mcL (0.0-1.3); Monocytes % 7.6 %; Neutrophils # 6.7 K/mcL (1.6-8.9); Platelet Count 266 K/mcL (140-400); Red Blood Count 4.52 M/mcL (3.82-4.97); Red Cell Distribution Width 14.1 % (11.5-14.5); Segmented Neutrophils % 76.1 %; White Blood Count 8.8 K/mcL (4.3-11.1)
[2020-03-31 04:52] LABS: BUN/Creatinine Ratio 18 (6-26); Blood Urea Nitrogen 13 mg/dL (6-20); Carbon Dioxide 26 mEq/L (23-29); Chloride 107 mEq/L (98-107); Glucose 112 mg/dL (70-105); Osmolality,Calculated 283 (280-300); Potassium 4.6 mEq/L (3.5-5.1); Sodium 136 mEq/L (136-145); eGFR For African Americans > 60 (> 60); eGFR For Non-African Americans > 60 (> 60)
[2020-03-31] MEDS: *HR* Heparin 5,000 UNIT/ML VIAL SQ SCH (07:14)
[2020-03-31] MEDS ORDERED: Ketorolac 30 MG/ML VIAL IVP ONE (08:34)
[2020-03-31] MEDS ORDERED: Vancomycin (wt based) 1,000 MG VIAL IVPB SCH (09:00)
[2020-03-31 11:03] VITALS: BP 134/75
== END 2020-03-31 11:33 | disposition left against medical advice (07) ==
LOC: EMEROOARM 13:47 → 3ANU 13:47 → SUATTDRO 16:24 → 3ANU 17:52
PROVIDERS: ADMIT Internal Medicine; ATTEND Internal Medicine